=== PATIENT | male | born 1980 | race Caucasian/White ===

== ENCOUNTER 2016-07-28 18:40 | Emergency (ER) | payer OTHER ==
[2016-07-28 18:51] VITALS: BP 143/93
--- NOTE | 2016-07-28 19:08 | EDM.PDOC ---
ED HISTORY OF PRESENT ILLNESS - General Chief Complaint: Respiratory Problem Stated Complaint: COUGH Time Seen by Provider: 07/28/16 18:56 Source of Information: Reports: Patient History Limitations: Reports: No limitations - History of Present Illness INITIAL COMMENTS - FREE TEXT/NARRATIVE: The patient says he woke up last night with a sore throat. He has then developed a cough. He will cough so hard that he will vomit at times. He does not feel good and he feels lightheaded. He does not feel like he has a fever but he has been outside in the cold all day long. He did not get his flu shot. He has no chest pain and no shortness of breath. He has no nausea or abdominal pain. He just vomited after coughing. The patient does smoke and he has had albuterol for reactive airways before. Timing/Duration: Reports: Day(s): (last night) Severity: moderate Improves with: Reports: None Worsens with: Reports: None Associated Symptoms (General): Reports: cough. Denies: chest pain, fever/chills , shortness of breath - Related Data Allergies/ADRs: Allergies Allergy/AdvReac Type Severity Reaction Status Date / Time No Known Allergies Allergy Verified 07/28/16 18:51 Home Meds: Home Meds Dextroamphetamine/Amphetamine [Adderall 10 mg Tablet] 10 mg PO 1500 07/27/15 [ History] Dextroamphetamine/Amphetamine [Adderall] 30 mg PO DAILY 07/27/15 [History] Hydrocodone/Acetaminophen [Hydrocodon-Acetaminophen 5-325] 1 mg PO BID PRN 07/26 [History] traZODone 100 mg PO BEDTIME 07/27/15 [History] Famotidine [Pepcid] 20 mg PO DAILY #30 tablet 06/19/16 [Rx] Ondansetron HCl [Zofran] 8 mg PO Q4H PRN #6 tablet 06/19/16 [Rx] Albuterol [IJD: Ventolin HFA] 2 puff INH Q6HR PRN #18 gm 07/28/16 [Rx] Azithromycin [IJD: Azithromycin] 250 mg PO DAILY #6 tab 07/28/16 [Rx] Codeine/Promethazine [Phenergan with Codeine] 5 - 10 ml PO Q6HR PRN #240 ml [Rx] Past Medical History Genitourinary History: Reports: Pyelonephritis, Renal calculus Musculoskeletal History: Reports: Fracture Neurological History: Reports: Headaches, chronic Other Neuro History: states had "tension headaches when I was in the ." Psychiatric History: Reports: PTSD - Infectious Disease History Infectious Disease History: Reports: Chicken pox - Past Surgical History HEENT Surgical History: Reports: Oral surgery Musculoskeletal Surgical History: Reports: Arthroscopic knee Social & Family History - Tobacco Use Smoking Status *Q: Current Every Day Smoker Years of Tobacco use: 16 Packs/Tins Daily: 1 Second Hand Smoke Exposure: No - Caffeine Use Caffeine Use: Reports: None - Recreational Drug Use Recreational Drug Use: No - Living Situation & Occupation Living situation: Reports: single Occupation: employed ED ROS GENERAL - Review of Systems Review Of Systems: See Below Constitutional: Reports: malaise, weakness, fatigue HEENT: Reports: Other (Congestion and runny nose) Respiratory: Reports: Cough. Denies: Shortness of Breath Cardiovascular: Reports: No symptoms Endocrine: Reports: no symptoms GI/Abdominal: Reports: No symptoms : Reports: no symptoms Musculoskeletal: Reports: no symptoms Skin: Reports: no symptoms ED EXAM, GENERAL - Physical Exam Exam: See Below Exam Limited By: No limitations General Appearance: alert, no apparent distress Ears: normal external exam, normal canal, normal TMs Nose: normal inspection Throat/Mouth: Normal inspection Head: atraumatic, normocephalic Neck: normal inspection Respiratory/Chest: no respiratory distress, lungs clear, normal breath sounds Cardiovascular: regular rate, rhythm, no edema, no murmur GI/Abdominal: soft, non tender, no organomegaly, no mass Extremities: normal inspection Neurological: alert, oriented, no motor/sensory deficits Course - Vital Signs Last Recorded V/S: Last Vital Signs Temp 98.8 F 07/28/16 18:47 Pulse 109 H 07/28/16 18:47 Resp 18 07/28/16 18:47 BP 143/93 H 07/28/16 18:47 Pulse Ox 99 07/28/16 18:47 - Orders/Labs/Meds Orders: Active Orders 24 hr Category Date Time Status CXR [Chest 2V] [CR] Stat Exams 07/28/16 19:02 Ordered - Re-Assessments/Exams Free Text/Narrative Re-Assessment/Exam: 07/28/16 19:07 I have ordered a CXR and influenza screen. 07/28/16 19:45 His influenza is negative and his CXR looks good. I will treat him for bronchitis with zithromax, phenergan with codeine and an inhaler. Departure - Departure Time of Disposition: 19:50 Disposition: Home, Self-Care 01 Condition: good Clinical Impression: Bronchitis Prescriptions: Albuterol [IJD: Ventolin HFA] 2 puff INH Q6HR PRN #18 gm PRN Reason: Shortness Of Breath Codeine/Promethazine [Phenergan with Codeine] 5 - 10 ml PO Q6HR PRN #240 ml PRN Reason: Cough Azithromycin [IJD: Azithromycin] 250 mg PO DAILY #6 tab Referrals: Shell See PA [Physician Tree Expert] - 1 Week Forms: ED Department Discharge Additional Instructions: Get plenty of rest and drink plenty of fluids such as water. Take the zithromax daily for 5 days. Take the phenergan with codeine for cough. You may need 10mLs to control the cough. Please return if you are worse. - My Orders Last 24 Hours: My Active Orders 07/28/16 19:02 CXR [Chest 2V] [CR] Stat - Assessment/Plan Last 24 Hours: My Active Orders 07/28/16 19:02 CXR [Chest 2V] [CR] Stat
--- NOTE | 2016-07-29 09:59 | CR ---
Chest: Two views of the chest were obtained. Comparison: Previous chest x-ray of 01/14/16. Heart size and mediastinum are normal. Lungs are clear. Bony structures are unremarkable for the patient's age. Impression: 1. Nothing acute is identified on two-view chest x-ray. Diagnostic code #1
== END 2016-07-28 20:05 | disposition home or self-care (01) ==
LOC: JD.ED 18:40
DX: J40 Bronchitis, not specified as acute or chronic (principal); Z79.899 Other long term (current) drug therapy; F17.200 Nicotine dependence, unspecified, uncomplicated
CPT/HCPCS: 71020; 71020-26; 87804; 99283; 99284

== ENCOUNTER 2017-03-03 03:27 | Emergency (ER) | payer OTHER ==
[2017-03-03 03:37] VITALS: BP 139/83
--- NOTE | 2017-03-03 03:46 | EDM.PDOC ---
ED HPI GENERAL MEDICAL PROBLEM - General Chief Complaint: General Stated Complaint: CHILS/FEVER/THROWING UP Time Seen by Provider: 03/03/17 03:36 Source of Information: Reports: Patient History Limitations: Reports: No Limitations - History of Present Illness INITIAL COMMENTS - FREE TEXT/NARRATIVE: 36-year-old male presents to the ED with acute onset of nausea vomiting 5 over the last 7 hours. Initial emesis contained eaten food. Subsequently is been bilious without blood. He then developed severe chills/rigors where he can no longer keep warm tonight. He has been coughing for the better part of a week with greenish sputum production. No hemoptysis. He is a smoker. Usually takes tramadol and Adderall but has been off both these medications for months since the [employer] did not send his medication as prescribed. Denies any genitourinary complaints. No skin problems. No previous abdominal surgery. Stools have been on the looser side but not diarrhea. Onset: Today, Other (Has been coughing with greenish sputum production for the better part of a week.) Onset Date: 03/03/17 (Sudden onset of fever chills with nausea and vomiting.) Duration: Hour(s): (Has vomited 5 times over the last 7 hours.) Location: Reports: Chest, Abdomen Quality: Reports: Other Severity: Moderate (Diffuse myalgia.) Improves with: Reports: None Worsens with: Reports: None Context: Reports: Other. Denies: Activity, Exercise, Lifting, Sick Contact, Trauma Associated Symptoms: Reports: Chest Pain, Cough (Has been ill with upper respiratory tree tract infection for the last week.), cough w sputum (Greenish sputum), Fever/Chills, Headaches (ESPECIALLY tonight.), Loss of Appetite, Malaise, Nausea/Vomiting, Shortness of Breath, Weakness. 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: Other (see below) (Nothing will stay down.) - Related Data Allergies Allergy/AdvReac Type Severity Reaction Status Date / Time No Known Allergies Allergy Verified 03/03/17 03:37 Home Meds: Home Meds Dextroamphetamine/Amphetamine [Adderall 10 mg Tablet] 30 mg PO 1500 07/27/15 [ History] Dextroamphetamine/Amphetamine [Adderall] 30 mg PO DAILY 07/27/15 [History] traZODone 100 mg PO BEDTIME 07/27/15 [History] Albuterol [IJD: Ventolin HFA] 2 puff INH Q6HR PRN #18 gm 07/28/16 [Rx] Budesonide/Formoterol Fumarate [Symbicort 160-4.5 Mcg Inhaler] 1 - 2 puff INH DAILY 03/03/17 [History] Hydrocodone/Chlorphen P-Stirex [Tussionex Pennkinetic Susp] 5 ml PO Q12H PRN # 60 ml 03/03/17 [Rx] Levofloxacin [Levaquin] 500 mg PO Q24H #9 tablet 03/03/17 [Rx] Ondansetron [Zofran ODT] 4 mg PO Q6H #5 tab.dis 03/03/17 [Rx] traMADol [Ultram] 50 mg PO Q6H PRN 03/03/17 [History] Past Medical History Genitourinary History: Reports: Pyelonephritis, Renal Calculus Musculoskeletal History: Reports: Fracture Neurological History: Reports: Headaches, Chronic Other Neuro History: states had "tension headaches when I was in the ." Psychiatric History: Reports: PTSD - Infectious Disease History Infectious Disease History: Reports: Chicken Pox - Past Surgical History HEENT Surgical History: Reports: Oral Surgery Musculoskeletal Surgical History: Reports: Arthroscopic Knee Social & Family History - Tobacco Use Smoking Status *Q: Current Every Day Smoker Years of Tobacco use: 16 Packs/Tins Daily: 1 Second Hand Smoke Exposure: No - Caffeine Use Caffeine Use: Reports: None - Recreational Drug Use Recreational Drug Use: No - Living Situation & Occupation Living situation: Reports: Single Occupation: Employed ED ROS GENERAL - Review of Systems Review Of Systems: See Below Constitutional: Reports: Fever, Chills, Malaise, Weakness, Fatigue, Decreased Appetite (For the last week.), Weight Loss HEENT: Denies: Dental Pain, Ear Pain, Eye Discharge, Eye Pain, Sinus Problem Respiratory: Reports: Shortness of Breath, Cough, Sputum. Denies: Wheezing, Pleuritic Chest Pain, Hemoptysis (Greenish in color) Cardiovascular: Reports: Chest Pain (Central chest pain with paroxysmal coughing.), Lightheadedness. Denies: Blood Pressure Problem, Claudication, Dyspnea on Exertion, Edema (At times), Orthopnea, Palpitations Endocrine: Reports: Fatigue GI/Abdominal: Reports: Abdominal Pain (Upper abdominal pain from vomiting.), Diarrhea (Loose stools but not watery.), Decreased Appetite. Denies: Flatus, Hematemesis : Reports: No Symptoms ( 1.) Musculoskeletal: Reports: Back Pain Skin: Reports: No Symptoms Neurological: Reports: Dizziness, Headache, Difficulty Walking, Weakness (Due to weakness). Denies: Numbness, Paresthesia, Pre-Existing Deficit, Seizure, Syncope, Tingling, Tremors, Trouble Speaking, Change in Speech, Gait Disturbance Psychiatric: Reports: No Symptoms Hematologic/Lymphatic: Reports: No Symptoms Immunologic: Reports: No Symptoms ED EXAM, GENERAL - Physical Exam Exam: See Below Exam Limited By: No Limitations General Appearance: Alert, Mild Distress (Distressed heavily and appears ill.) Eye Exam: Bilateral Eye: Normal Inspection (No jaundice.) Ears: Other (Has a right serous otitis media early otitis media. Left TM is normal.) Ear Exam: Right Ear: Erythema, Swelling, TM Red, TM Bulging Nose: Normal Inspection Throat/Mouth: Normal Inspection, Normal Oropharynx, Other Head: Atraumatic (Posterior oropharynx is diffusely erythematous from coughing but no exudate or active infection noted.), Normocephalic Neck: Normal Inspection, Supple, Full Range of Motion. No: Lymphadenopathy (L) , Lymphadenopathy (R) Respiratory/Chest: No Respiratory Distress, Lungs Clear, Normal Breath Sounds, No Accessory Muscle Use Cardiovascular: Normal Peripheral Pulses, Regular Rate, Rhythm, No Edema, No Gallop, No Murmur, No Rub Peripheral Pulses: 2+: Posterior Tibial (L), Posterior Tibial (R), Dorsalis Pedis (L), Dorsalis Pedis (R) GI/Abdominal: Normal Bowel Sounds, Soft, Non-Tender, No Organomegaly, No Distention, No Abnormal Bruit, No Mass, Pelvis Stable, Other (No previous surgical scars.) Back Exam: Normal Inspection, Full Range of Motion. No: CVA Tenderness (L), CVA Tenderness (R) Extremities: Normal Inspection, Normal Range of Motion, Non-Tender, No Pedal Edema, Normal Capillary Refill Neurological: Alert, Oriented, CN II-XII Intact, Normal Cognition, Normal Gait, Normal Reflexes Psychiatric: Normal Affect, Normal Mood Skin Exam: Warm, Dry, Intact, Normal Color, No Rash Course - Vital Signs Last Recorded V/S: Last Vital Signs Temp 36.8 C 03/03/17 04:00 Pulse 82 03/03/17 03:34 Resp 16 03/03/17 03:34 BP 139/83 03/03/17 03:34 Pulse Ox 95 03/03/17 03:34 - Orders/Labs/Meds Orders: Active Orders 24 hr Category Date Time Status Chest 1V Frontal [CR] Stat Exams 03/03/17 03:48 Taken CULTURE BLOOD [BC] Stat Lab 03/03/17 04:10 Received CULTURE BLOOD [BC] Stat Lab 03/03/17 04:17 Received Dextrose 5%-0.9% NaCl [Dextrose 5%-Normal Saline] 1,000 Med 03/03/17 04:00 Active ml IV ASDIRECTED Ketorolac [Toradol] Med 03/03/17 04:00 Active 30 mg IVPUSH ONETIME Blood Culture x2 Reflex Set [OM.PC] Stat Oth 03/03/17 03:49 Ordered Medication Orders Dextrose/Sodium Chloride (Dextrose 5%-Normal Saline) 1,000 mls @ 500 mls/hr IV ASDIRECTED KELL Last Admin: 03/03/17 03:57 Dose: 500 mls/hr Ketorolac Tromethamine (Toradol) 30 mg IVPUSH ONETIME KELL Last Admin: 03/03/17 03:58 Dose: 30 mg Labs: Laboratory Tests 03/03/17 03/03/17 03/03/17 Range/Units 04:10 04:10 04:22 WBC 11.36 H (4.23-9.07) K/mm3 RBC 5.29 (4.63-6.08) M/mm3 Hgb 15.7 (13.7-17.5) gm/L Hct 45.8 (40.1-51.0) % MCV 86.6 (79.0-92.2) fl MCH 29.7 (25.7-32.2) pg MCHC 34.3 (32.2-35.5) g/dl RDW Std Deviation 40.3 (35.1-43.9) fL Plt Count 184 (163-337) K/mm3 MPV 10.9 (9.4-12.3) fl Neutrophils % (Manual) 82 H (40-60) % Band Neutrophils % 0 (0-10) % Lymphocytes % (Manual) 9 L (20-40) % Atypical Lymphs % 4 % Monocytes % (Manual) 3 (2-10) % Eosinophils % (Manual) 2 (0.8-7.0) % Basophils % (Manual) 0 L (0.2-1.2) Platelet Estimate Adequate Plt Morphology Comment Normal RBC Morph Comment Normal Sodium 139 (136-145) mEq/L Potassium 3.6 (3.5-5.1) mEq/L Chloride 103 (98-107) mEq/L Carbon Dioxide 25 (21-32) mEq/L Anion Gap 14.6 (5-15) BUN 13 (7-18) mg/dL Creatinine 1.1 (0.7-1.3) mg/dL Est Cr Clr Drug Dosing 88.03 mL/min Estimated GFR (MDRD) > 60 (>60) mL/min BUN/Creatinine Ratio 11.8 L (14-18) Glucose 150 H (74-106) mg/dL Calcium 9.1 (8.5-10.1) mg/dL Total Bilirubin 0.5 (0.2-1.0) mg/dL AST 18 (15-37) U/L ALT 22 (16-63) U/L Alkaline Phosphatase 120 H (46-116) U/L C-Reactive Protein 3.0 H* (<1.0) mg/dL Total Protein 7.4 (6.4-8.2) g/dl Albumin 3.7 (3.4-5.0) g/dl Globulin 3.7 gm/dL Albumin/Globulin Ratio 1.0 (1-2) Urine Color Yellow (Yellow) Urine Appearance Clear (Clear) Urine pH 6.0 (5.0-8.0) Ur Specific [place] > or = 1.030 (1.005-1.030) Urine Protein 1+ H (Negative) Urine Glucose (UA) Negative (Negative) Urine Ketones 1+ H (Negative) Urine Occult Blood Negative (Negative) Urine Nitrite Negative (Negative) Urine Bilirubin Negative (Negative) Urine Urobilinogen 0.2 (0.2-1.0) Ur Leukocyte Esterase Negative (Negative) Urine RBC 0-5 (0-5) /hpf Urine WBC 0-5 (0-5) /hpf Urine WBC Clumps Rare (NOT SEEN) /hpf Ur Epithelial Cells Not seen (0-5) /hpf Urine Bacteria Rare (FEW) /hpf Urine Mucus Moderate H (FEW) /hpf Meds: Medications Generic Name Dose Route Start Last Admin Trade Name Freq PRN Reason Stop Dose Admin Dextrose/Sodium Chloride 1,000 mls @ 500 mls/hr 03/03/17 04:00 03/03/17 03:57 Dextrose 5%-Normal Saline IV 500 mls/hr ASDIRECTED KELL Administration Ketorolac Tromethamine 30 mg 03/03/17 04:00 03/03/17 03:58 Toradol IVPUSH 30 mg ONETIME KELL Administration Discontinued Medications Generic Name Dose Route Start Last Admin Trade Name Freq PRN Reason Stop Dose Admin Acetaminophen 975 mg 03/03/17 03:50 03/03/17 04:00 Tylenol PO 03/03/17 03:51 975 mg NOW ONE Administration Hydromorphone HCl 0.5 mg 03/03/17 04:50 03/03/17 04:55 Dilaudid IVPUSH 03/03/17 04:51 0.5 mg ONETIME ONE Administration Levofloxacin/Dextrose 500 mg/ 100 mls @ 100 mls/hr 03/03/17 05:22 03/03/17 05 :31 Premix IV 03/03/17 06:21 100 mls/hr ONETIME ONE Administration Metoclopramide HCl 7.5 mg 03/03/17 03:50 03/03/17 03:59 Reglan IVPUSH 03/03/17 03:51 7.5 mg ONETIME ONE Administration - Radiology Interpretation Free Text/Narrative:: 36-year-old male presents the ED with reported acute onset of fever chills with associated nausea vomiting over the last 6 date hours. He's been coughing paroxysmal for the better part of a week with greenish sputum production. No diarrhea. He is afebrile on examination. He feels "quite cool to touch actually. Tongue is mildly dry and coated. Lungs sound clear to auscultation percussion benign abdominal examination integument normal. Plan septic workup will be carried out although he is not showing any signs of true septicemia. Chest x-ray blood cultures 2. IV will be D5 normal saline at 500 mils per hour. Given Reglan 7.5 mg IV to arrest vomiting. Toradol 30 mg IV for headache and myalgia relief. Tylenol 975 mg by mouth in about 20 minutes once the Reglan to start to work. - Re-Assessments/Exams Free Text/Narrative Re-Assessment/Exam: 03/03/17 04:40: Chest x-ray done portably reveals no infiltrates within the lung franco. Does suggest diffuse vascular congestion and mild cardiomegaly but I believe it's magnified due to portable technique. 03/03/17 04:50 patient continues to have a paroxysmal nonproductive cough. This is producing dry heave like illness. I do not believe he'll tolerate Phenergan with codeine. We'll try Dilaudid 0.5 mg IV for its anti-to tussive effect. 03/03/17 05:17 Labs are back. White count is elevated at 11.36. Differentials 82% neutrophils no bands hemoglobin is normal 15.7 with hematocrit of 45.8. Sodium is 139 potassium 3.6 chloride 103 bicarbonate 25. Anion gap is normal at 14.6 BUN is 13 creatinine is 1.1 glucose is 150. Total bilirubin 0.5 AST of 18 ALT of 22. Alkaline phosphatase stays minimally elevated at 120. C-reactive protein is elevated at 3.0. Urinalysis is negative for infective process. 03/03/17 05:22 he continues to have a productive sounding cough. With an elevated CRP is slightly elevated white count he has bronchitis likely bacterial origin. I will therefore hang Levaquin 500 milligrams IV at this time. Departure - Departure Time of Disposition: 06:43 Disposition: Home, Self-Care 01 Condition: Fair Clinical Impression: Nausea and vomiting in adult patient, Bronchitis, Acute febrile illness Otitis media Qualifiers: Otitis media type: suppurative Chronicity: acute Laterality: right Recurrence: not specified as recurrent Spontaneous tympanic membrane rupture: without spontaneous rupture Qualified Code(s): H66.001 - Acute suppurative otitis media without spontaneous rupture of ear drum, right ear - Discharge Information Prescriptions: Hydrocodone/Chlorphen P-Stirex [Tussionex Pennkinetic Susp] 5 ml PO Q12H PRN # 60 ml PRN Reason: cough relief. Levofloxacin [Levaquin] 500 mg PO Q24H #9 tablet Ondansetron [Zofran ODT] 4 mg PO Q6H #5 tab.dis Instructions: Acute Bronchitis, [id number] Referrals: Ana Giles DO [Primary Care Provider] - Forms: ED Department Discharge, ED Return to Work/School Form Additional Instructions: Evaluation the emergency room today in regards to development of nausea and vomiting associated with fever and chills at home. History of productive cough for greater than one week. No fever identified when you arrived in the ED. Chest x-ray done portably reveals no evidence of pneumonia. Lab work over does identify a mildly elevated white blood cell count with suggestive underlying bacterial infection. Diagnosis is therefore bronchitis. You're treated in the ED with intravenous fluids to rehydrate you. Reglan was used to stop vomiting. He received Toradol 30 mg IV for fever and body ache relief . Also later given Dilaudid 0.5 mg IV as a cough suppressant. Treatment at home is clear fluids such as Gatorade and Powerade today and tomorrow to maintain hydration. Ideally 5-6 ounces per hour. Diet to be as tolerated. Suggest no dairy products or apple juice grape juice until you know for sure you're not going to develop diarrhea over the next 12 hours. Medications to be Levaquin 500 milligrams once daily starting tomorrow morning for the next 9 days to clear up bronchitis. May use Zofran 4 mg under the tongue every 4-6 hours needed for relief of nausea vomiting. Cough syrup is primarily to be used at bedtime ideally about an hour before planning to go to sleep. 5 mils every 12 hours may be used for cough relief. Suggest off work for the next 48 hours to 72 hours to recover from current illness. - My Orders Last 24 Hours: My Active Orders 03/03/17 03:48 Chest 1V Frontal [CR] Stat 03/03/17 03:49 Blood Culture x2 Reflex Set [OM.PC] Stat 03/03/17 04:00 Dextrose 5%-0.9% NaCl [Dextrose 5%-Normal Saline] 1,000 ml IV ASDIRECTED Ketorolac [Toradol] 30 mg IVPUSH ONETIME 03/03/17 04:10 CULTURE BLOOD [BC] Stat 03/03/17 04:17 CULTURE BLOOD [BC] Stat - Assessment/Plan Last 24 Hours: My Active Orders 03/03/17 03:48 Chest 1V Frontal [CR] Stat 03/03/17 03:49 Blood Culture x2 Reflex Set [OM.PC] Stat 03/03/17 04:00 Dextrose 5%-0.9% NaCl [Dextrose 5%-Normal Saline] 1,000 ml IV ASDIRECTED Ketorolac [Toradol] 30 mg IVPUSH ONETIME 03/03/17 04:10 CULTURE BLOOD [BC] Stat 03/03/17 04:17 CULTURE BLOOD [BC] Stat
[2017-03-03] MEDS ORDERED: Acetaminophen 325 MG Tab PO ONE (03:50)
[2017-03-03] MEDS ORDERED: Metoclopramide 10 MG/2 ML SDV IVPUSH ONE (03:50)
[2017-03-03] MEDS ORDERED: Ketorolac 30 MG/ML SDV IVPUSH SCH (04:00)
[2017-03-03] MEDS ORDERED: Dextrose 5%-0.9% NaCl 1,000 ML IV SCH (04:00)
[2017-03-03] MEDS ORDERED: HYDROmorphone 0.5 MG/0.5 ML Syringe IVPUSH ONE (04:50)
[2017-03-03] MEDS ORDERED: Levofloxacin/Dextrose 5%-Water 500 MG in Premix Bag 1 BAG IV ONE (05:22)
--- NOTE | 2017-03-03 07:17 | CR ---
Chest: Portable view of the chest was obtained. Comparison: Prior chest x-ray 07/28/16. Heart size and mediastinum are normal. Lungs are clear. Bony structures are grossly intact. Impression: 1. Nothing acute is identified on portable chest x-ray. Diagnostic code #1
== END 2017-03-03 06:44 | disposition home or self-care (01) ==
LOC: JD.ED 03:27
DX: H66.001 Acute suppurative otitis media without spontaneous rupture of ear drum, right ear (principal); J40 Bronchitis, not specified as acute or chronic; R11.2 Nausea with vomiting, unspecified; F17.210 Nicotine dependence, cigarettes, uncomplicated; Z79.899 Other long term (current) drug therapy
CPT/HCPCS: 36415; 71010; 80053; 81001; 85025; 86140; 87040; 96361; 96365; 96375; 99284; A9270; J1170; J1885; J1956; J2765; J7042

== ENCOUNTER 2017-04-29 14:52 | Emergency (ER) | payer OTHER ==
[2017-04-29 15:19] VITALS: BP 121/82
--- NOTE | 2017-04-29 16:38 | EDM.PDOC ---
ED HPI GENERAL MEDICAL PROBLEM - General Chief Complaint: Burn Stated Complaint: RIGHT HAND BURN-INDEX AND MIDDLE FINGERS Time Seen by Provider: 04/29/17 16:19 Source of Information: Reports: Patient History Limitations: Reports: No Limitations - History of Present Illness INITIAL COMMENTS - FREE TEXT/NARRATIVE: Patient's a 36-year-old male presents ED complaining of jefferson to the right second and third finger. 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 Today developed blisters. He continues have pain to the burn sites mild to moderate intensity. Tetanus status up-to-date. Offers no additional complaints. Right 2-Index finger Pain Score (Numeric/FACES): 9 - Related Data Allergies Allergy/AdvReac Type Severity Reaction Status Date / Time No Known Allergies Allergy Verified 03/03/17 03:37 Home Meds: Home Meds Dextroamphetamine/Amphetamine [Adderall 10 mg Tablet] 30 mg PO 1500 07/27/15 [ History] Dextroamphetamine/Amphetamine [Adderall] 30 mg PO DAILY 07/27/15 [History] traZODone 100 mg PO BEDTIME 07/27/15 [History] Albuterol [IJD: Ventolin HFA] 2 puff INH Q6HR PRN #18 gm 07/28/16 [Rx] Budesonide/Formoterol Fumarate [Symbicort 160-4.5 Mcg Inhaler] 1 - 2 puff INH DAILY 03/03/17 [History] Ondansetron [Zofran ODT] 4 mg PO Q6H #5 tab.dis 03/03/17 [Rx] traMADol [Ultram] 50 mg PO Q6H PRN 03/03/17 [History] Past Medical History Genitourinary History: Reports: Pyelonephritis, Renal Calculus Musculoskeletal History: Reports: Fracture Neurological History: Reports: Headaches, Chronic Other Neuro History: states had "tension headaches when I was in the ." Psychiatric History: Reports: PTSD - Infectious Disease History Infectious Disease History: Reports: Chicken Pox - Past Surgical History HEENT Surgical History: Reports: Oral Surgery Musculoskeletal Surgical History: Reports: Arthroscopic Knee Social & Family History - Tobacco Use Smoking Status *Q: Current Every Day Smoker Years of Tobacco use: 28 Packs/Tins Daily: 1 Second Hand Smoke Exposure: No - Caffeine Use Caffeine Use: Reports: Coffee, Soda, Tea - Recreational Drug Use Recreational Drug Use: No - Living Situation & Occupation Living situation: Reports: Single Occupation: Employed ED ROS GENERAL - Review of Systems Review Of Systems: ROS reveals no pertinent complaints other than HPI. ED EXAM, BURN/SMOKE INHALATION - Physical Exam Exam: See Below Exam Limited By: No Limitations General Appearance: Alert, WD/WN, No Apparent Distress Ears (Abbreviated): Hearing Grossly Normal Mouth/Throat: No Symptoms Reported Respiratory: No Respiratory Distress, No Accessory Muscle Use Cardiovascular: Normal Peripheral Pulses, Regular Rate, Rhythm Peripheral Pulses: 4+: Radial (R) Extremities: Other (small intact blisters to the distal tips palmar side of the right second and third finger. Minimal pain on examination. No sensory/motor deficits distally.) Neurological: Alert, Oriented, CN II-XII Intact, Normal Cognition, No Motor/ Sensory Deficits Psychiatric: Normal Affect, Normal Mood Skin Exam: Warm, Dry, Intact Course - Vital Signs Last Recorded V/S: Last Vital Signs Temp 98.4 F 04/29/17 15:17 Pulse 86 04/29/17 15:17 Resp 20 04/29/17 15:17 BP 121/82 04/29/17 15:17 Pulse Ox 96 04/29/17 15:17 - Re-Assessments/Exams Free Text/Narrative Re-Assessment/Exam: Two small partial-thickness jefferson to the tips of the right second and third fingers palmar side. Blisters intact. Minimal pain present on palpation. Burn occurred 24 hours ago thus no further follow-up in the ER as required. He will see his PCP this coming week for reevaluation. Bacitracin and dressing applied to the fingers. Will discharge home with instructions as documented. Departure - Departure Time of Disposition: 16:34 Disposition: Home, Self-Care 01 Condition: Good Clinical Impression: Jefferson of multiple specified sites - Discharge Information Instructions: Burn Care, [id number] Referrals: Ana Giles DO [Primary Care Provider] - Forms: ED Department Discharge, ED Return to Work/School Form Additional Instructions: cleanse sites twice daily with soap and water, pat dry, reapply triple antibiotic ointment, and dressing. No soaking the wound. keep area clean and dry.Follow-up with PCP this coming Monday or Wednesday for reevaluation. Take Tylenol and ibuprofen as needed for discomfort. Return to the ED as needed for any new or worsening symptoms.
== END 2017-04-29 16:43 | disposition home or self-care (01) ==
LOC: JD.ED 14:52
DX: T23.231A Burn of second degree of multiple right fingers (nail), not including thumb, initial encounter (principal); F17.210 Nicotine dependence, cigarettes, uncomplicated; Z79.899 Other long term (current) drug therapy; X19.XXXA Contact with other heat and hot substances, initial encounter
CPT/HCPCS: 16020; 99282; 99283-25

== ENCOUNTER 2017-07-06 21:05 | Emergency (ER) | payer OTHER ==
[2017-07-06 21:12] VITALS: BP 146/99
--- NOTE | 2017-07-06 22:35 | EDM.PDOC ---
ED HPI GENERAL MEDICAL PROBLEM - General Chief Complaint: Respiratory Problem Stated Complaint: COUGH,BODY ACHES,WEAKNESS Time Seen by Provider: 07/06/17 22:00 Source of Information: Reports: Patient History Limitations: Reports: No Limitations - History of Present Illness INITIAL COMMENTS - FREE TEXT/NARRATIVE: 36-year-old male presents for evaluation and treatment of cough, headaches, body aches, nausea and vomiting. Patient reports he has been ill with Monday and cough and congestion. He states that his symptoms significantly worsened today. He states he feels like he was "hit by a truck ". He is reporting headaches, weakness, cough, body aches, nausea, vomiting and fatigue. Patient did have a flu vaccine this season. 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: Other (see below) Other Treatments FINANCIAL ADVISOR TRAINEE: mucinex; sinus cold Generalized Pain Score (Numeric/FACES): 6 - Related Data Allergies Allergy/AdvReac Type Severity Reaction Status Date / Time No Known Allergies Allergy Verified 07/08/17 13:02 Home Meds: Home Meds Dextroamphetamine/Amphetamine [Adderall] 30 mg PO DAILY 07/27/15 [History] traZODone 100 mg PO BEDTIME PRN 07/27/15 [History] Albuterol [IJD: Ventolin HFA] 2 puff INH Q6HR PRN #18 gm 07/28/16 [Rx] Budesonide/Formoterol Fumarate [Symbicort 160-4.5 Mcg Inhaler] 1 - 2 puff INH DAILY 03/03/17 [History] traMADol [Ultram] 50 mg PO Q6H PRN 03/03/17 [History] Oseltamivir [Tamiflu] 75 mg PO BID #10 cap 07/06/17 [Rx] Past Medical History Genitourinary History: Reports: Pyelonephritis, Renal Calculus Musculoskeletal History: Reports: Fracture Neurological History: Reports: Headaches, Chronic Other Neuro History: states had "tension headaches when I was in the ." Psychiatric History: Reports: PTSD - Infectious Disease History Infectious Disease History: Reports: Chicken Pox - Past Surgical History HEENT Surgical History: Reports: Oral Surgery Musculoskeletal Surgical History: Reports: Arthroscopic Knee Social & Family History - Tobacco Use Smoking Status *Q: Current Every Day Smoker Years of Tobacco use: 18 Packs/Tins Daily: 0.5 Second Hand Smoke Exposure: No - Caffeine Use Caffeine Use: Reports: Coffee, Energy Drinks - Recreational Drug Use Recreational Drug Use: No - Living Situation & Occupation Living situation: Reports: Single Occupation: Employed ED ROS GENERAL - Review of Systems Review Of Systems: See Below Constitutional: Reports: Fever, Chills, Malaise, Weakness, Fatigue HEENT: Reports: Throat Pain. Denies: Ear Pain Respiratory: Reports: Cough GI/Abdominal: Reports: Nausea, Vomiting. Denies: Abdominal Pain Neurological: Reports: Headache ED EXAM, GENERAL - Physical Exam Exam: See Below Exam Limited By: No Limitations General Appearance: Alert, WD/WN, Mild Distress, Thin Ears: Normal External Exam, Normal Canal, Hearing Grossly Normal, Normal TMs Nose: Normal Inspection Throat/Mouth: Normal Inspection, Normal Lips, Normal Oropharynx, Normal Voice, No Airway Compromise Neck: Normal Inspection. No: Lymphadenopathy (L), Lymphadenopathy (R) Respiratory/Chest: No Respiratory Distress, Lungs Clear, Normal Breath Sounds Cardiovascular: Normal Peripheral Pulses, No Murmur, Tachycardia Neurological: Alert, Oriented, Normal Cognition Psychiatric: Normal Affect, Normal Mood Skin Exam: Warm, Dry, Normal Color Course - Vital Signs Last Recorded V/S: Last Vital Signs Temp 37.7 C 07/06/17 21:11 Pulse 109 H 07/06/17 21:11 Resp 20 07/06/17 21:11 BP 146/99 H 07/06/17 21:11 Pulse Ox 96 07/06/17 21:11 - Radiology Interpretation Free Text/Narrative:: Chest x-ray shows no acute intrathoracic process. - Re-Assessments/Exams Free Text/Narrative Re-Assessment/Exam: 07/06/17 23:05 Influenza returned negative. I reviewed the labs and imaging with the patient. I do have a high clinical suspicion for influenza. He is tachycardiac, febrile and has classic influenza symptoms. I feel symptoms like his started today and therefore is in window for tamiflu. I offered him Tamiflu. Discussed risk and benefits he would like to proceed with Tamiflu. Discharge instructions as documented. Departure - Departure Time of Disposition: 23:06 Disposition: Home, Self-Care 01 Condition: Fair Clinical Impression: Influenza - Discharge Information Prescriptions: Oseltamivir [Tamiflu] 75 mg PO BID #10 cap Instructions: Influenza, Adult, [id number] Referrals: Ana Giles DO [Primary Care Provider] - Forms: ED Department Discharge, ED Return to Work/School Form Additional Instructions: tamiflu bid x 5 days no work x 1 week tylenol or motrin as needed for headaches, fevers rest drink plenty of fluids please return if symptoms change or worsen.
--- NOTE | 2017-07-07 07:35 | CR ---
Chest: Two views of the chest were obtained. Comparison: Prior chest x-ray of 03/03/17. Heart size and mediastinum are normal. Lungs are clear. Bony structures are unremarkable. Impression: 1. Nothing acute is identified on two-view chest x-ray. Diagnostic code #1
== END 2017-07-06 23:24 | disposition home or self-care (01) ==
LOC: JD.ED 21:05
DX: J11.1 Influenza due to unidentified influenza virus with other respiratory manifestations (principal); F17.210 Nicotine dependence, cigarettes, uncomplicated; Z79.899 Other long term (current) drug therapy
CPT/HCPCS: 71046; 71046-26; 87804; 99283

== ENCOUNTER 2017-07-08 12:52 | Emergency (ER) | payer OTHER ==
[2017-07-08 13:09] VITALS: BP 135/87
[2017-07-08] MEDS ORDERED: Ketorolac 30 MG/ML SDV IVPUSH ONE (13:49)
[2017-07-08] MEDS ORDERED: Sodium Chloride 0.9% 10 ML Syringe FLUSH PRN (13:49)
[2017-07-08] MEDS ORDERED: Sodium Chloride 0.9% 1,000 ML IV ONE (13:49)
[2017-07-08] MEDS ORDERED: Ondansetron 4 MG/2 ML SDV IVPUSH ONE (13:49)
--- NOTE | 2017-07-08 13:56 | EDM.PDOC ---
ED HPI GENERAL MEDICAL PROBLEM - General Chief Complaint: Fever Stated Complaint: BODY ACHES/COUGH/WEAKNESS Time Seen by Provider: 07/08/17 13:28 Source of Information: Reports: Patient History Limitations: Reports: No Limitations - History of Present Illness INITIAL COMMENTS - FREE TEXT/NARRATIVE: 36-year-old male presents for evaluation and treatment of headaches and body aches. Patient was seen by myself on . His influenza returned negative. He had a chest x-ray done which did not show any pneumonia. He was discharged home with Tamiflu as I had a high clinical suspicion for influenza. States he is not able to afford the Tamiflu and therefore has not started it. Reports his symptoms are worsening. He presented to the ER today as he states that he had a temperature of 102.1 at home. He has not taken anything today for his fever or symptoms such as Tylenol or Motrin. He has been using some severe cold and flu [id number] medication at night. Patient feels that he is dehydrated. He is currently complaining of fevers, chills, fatigue, malaise, cough, sore throat and nausea. He is having loose stools but no diarrhea. No vomiting. Symptoms started Monday but significantly worsened . No flu vaccine this season. Generalized Pain Score (Numeric/FACES): 5 - Related Data Allergies Allergy/AdvReac Type Severity Reaction Status Date / Time No Known Allergies Allergy Verified 07/08/17 13:02 Home Meds: Home Meds Dextroamphetamine/Amphetamine [Adderall] 30 mg PO DAILY 07/27/15 [History] traZODone 100 mg PO BEDTIME PRN 07/27/15 [History] Albuterol [IJD: Ventolin HFA] 2 puff INH Q6HR PRN #18 gm 07/28/16 [Rx] Budesonide/Formoterol Fumarate [Symbicort 160-4.5 Mcg Inhaler] 1 - 2 puff INH DAILY 03/03/17 [History] traMADol [Ultram] 50 mg PO Q6H PRN 03/03/17 [History] Oseltamivir [Tamiflu] 75 mg PO BID #10 cap 07/06/17 [Rx] Past Medical History Genitourinary History: Reports: Pyelonephritis, Renal Calculus Musculoskeletal History: Reports: Fracture Neurological History: Reports: Headaches, Chronic Other Neuro History: states had "tension headaches when I was in the ." Psychiatric History: Reports: PTSD - Infectious Disease History Infectious Disease History: Reports: Chicken Pox - Past Surgical History HEENT Surgical History: Reports: Oral Surgery Musculoskeletal Surgical History: Reports: Arthroscopic Knee Social & Family History - Family History Family Medical History: Noncontributory - Tobacco Use Smoking Status *Q: Current Every Day Smoker Years of Tobacco use: 20 Packs/Tins Daily: 1 Second Hand Smoke Exposure: No - Caffeine Use Caffeine Use: Reports: Coffee, Energy Drinks - Recreational Drug Use Recreational Drug Use: No - Living Situation & Occupation Living situation: Reports: Single Occupation: Employed ED ROS GENERAL - Review of Systems Review Of Systems: See Below Constitutional: Reports: Fever, Chills, Malaise, Weakness, Fatigue HEENT: Reports: Throat Pain. Denies: Ear Pain Respiratory: Reports: Cough GI/Abdominal: Denies: Abdominal Pain, Diarrhea, Vomiting Neurological: Reports: Headache ED EXAM, GENERAL - Physical Exam Exam: See Below Exam Limited By: No Limitations General Appearance: Alert, WD/WN, Mild Distress, Thin Eye Exam: Bilateral Eye: Normal Inspection Ears: Normal External Exam, Normal Canal, Hearing Grossly Normal, Normal TMs Nose: Normal Inspection Throat/Mouth: Normal Inspection, Normal Lips, Normal Voice Neck: Normal Inspection Respiratory/Chest: No Respiratory Distress, Lungs Clear, Normal Breath Sounds Cardiovascular: Normal Peripheral Pulses, Regular Rate, Rhythm, No Murmur GI/Abdominal: Soft, Non-Tender Neurological: Alert, Oriented, Normal Cognition Psychiatric: Normal Affect, Normal Mood Skin Exam: Normal Color, Diaphoretic, Increased Warmth Course - Vital Signs Last Recorded V/S: Last Vital Signs Temp 37.1 C 07/08/17 13:07 Pulse 106 H 07/08/17 13:07 Resp 16 07/08/17 13:07 BP 135/87 07/08/17 13:07 Pulse Ox 96 07/08/17 13:07 - Orders/Labs/Meds Orders: Active Orders 24 hr Category Date Time Status Peripheral IV Care [RC] . DIRECTED Care 07/08/17 13:49 Active CULTURE STREP A CONFIRMATION [RM] Stat Lab 07/08/17 14:09 Results STREP SCRN A RAPID W CULT CONF [RM] Stat Lab 07/08/17 14:09 Results Peripheral IV Insertion Adult [OM.PC] Routine Oth 07/08/17 13:49 Ordered Meds: Medications Discontinued Medications Generic Name Dose Route Start Last Admin Trade Name Fredomenico PRN Reason Stop Dose Admin Sodium Chloride 1,000 mls @ 999 mls/hr 07/08/17 13:49 07/08/17 14:02 Normal Saline IV 07/08/17 14:49 999 mls/hr ONETIME ONE Administration Ketorolac Tromethamine 30 mg 07/08/17 13:49 07/08/17 14:05 Toradol IVPUSH 07/08/17 13:50 30 mg ONETIME ONE Administration Ondansetron HCl 4 mg 07/08/17 13:49 07/08/17 14:02 Zofran IVPUSH 07/08/17 13:50 4 mg ONETIME ONE Administration Sodium Chloride 10 ml 07/08/17 13:49 07/08/17 14:05 Saline Flush FLUSH 10 ml ASDIRECTED PRN Administration Keep Vein Open - Re-Assessments/Exams Free Text/Narrative Re-Assessment/Exam: 07/08/17 16:12 Rapid strep returned negative. Reviewed this with the patient. He is feels improved after receiving a beta fluids and some Toradol. I do feel that this is influenza, recommended not filling the tamiflu as he is now out of window for treatment. I will discharge him home at this time. Discharge instructions as documented. Departure - Departure Time of Disposition: 16:13 Disposition: Home, Self-Care 01 Condition: Fair Clinical Impression: Influenza - Discharge Information Instructions: Influenza, Adult, [id number] Referrals: Ana Giles DO [Primary Care Provider] - Forms: ED Department Discharge Additional Instructions: Continue to drink plenty of fluids. Rest. Expect the ill for the next few days. Normally with influenza the first week is the worst however you are ill for several weeks regaining her energy. Follow-up with your primary care provider as needed. Alternate between Tylenol and Motrin for maximum headache and body relief. Please return to the ER if your symptoms change or worsen. - My Orders Last 24 Hours: My Active Orders 07/08/17 13:49 Peripheral IV Care [RC] . DIRECTED Peripheral IV Insertion Adult [OM.PC] Routine 07/08/17 14:09 CULTURE STREP A CONFIRMATION [RM] Stat STREP SCRN A RAPID W CULT CONF [RM] Stat - Assessment/Plan Last 24 Hours: My Active Orders 07/08/17 13:49 Peripheral IV Care [RC] . DIRECTED Peripheral IV Insertion Adult [OM.PC] Routine 07/08/17 14:09 CULTURE STREP A CONFIRMATION [RM] Stat STREP SCRN A RAPID W CULT CONF [RM] Stat
== END 2017-07-08 16:47 | disposition home or self-care (01) ==
LOC: JD.ED 12:52
DX: J11.1 Influenza due to unidentified influenza virus with other respiratory manifestations (principal); F17.210 Nicotine dependence, cigarettes, uncomplicated; F43.10 Post-traumatic stress disorder, unspecified; Z79.899 Other long term (current) drug therapy
CPT/HCPCS: 87081; 87430; 96361; 96374; 96375; 99283; J1885; J2405; J7040; J7050; 99282

== ENCOUNTER 2017-08-24 20:19 | Emergency (ER) | payer OTHER ==
[2017-08-24 20:33] VITALS: BP 129/85
--- NOTE | 2017-08-24 20:45 | EDM.PDOC ---
ED HPI GENERAL MEDICAL PROBLEM - General Chief Complaint: General Stated Complaint: RIGHT SIDE PAIN Time Seen by Provider: 08/24/17 20:44 Source of Information: Reports: Patient History Limitations: Reports: No Limitations - History of Present Illness INITIAL COMMENTS - FREE TEXT/NARRATIVE: Patient is a 36-year-old male presents ED complaining of right lateral chest discomfort. Patient states while moving a metal pipe at work today he had picked one of the pipes up underneath his right arm turned and felt a pop to the right lateral aspect of his chest. States since then the pain has increased worsened with palpation and or taking a deep breath. He states the pipe may have bumped him forcibly on the side. He has no other complaints. Right Chest Pain Score (Numeric/FACES): 8 - Related Data Allergies Allergy/AdvReac Type Severity Reaction Status Date / Time No Known Allergies Allergy Verified 08/24/17 20:26 Home Meds: Home Meds traZODone 100 mg PO BEDTIME PRN 07/27/15 [History] Albuterol [IJD: Ventolin HFA] 2 puff INH Q6HR PRN #18 gm 07/28/16 [Rx] Budesonide/Formoterol Fumarate [Symbicort 160-4.5 Mcg Inhaler] 1 - 2 puff INH DAILY 03/03/17 [History] Acetaminophen/HYDROcodone [[place] 325-5 MG] 1 tab PO Q6H PRN #8 tablet 08/24/17 [ Rx] Cetirizine [ZyrTEC] 10 mg PO DAILY 08/24/17 [History] Dextroamphetamine/Amphetamine [Adderall Xr 30 mg Capsule] 1 tab PO DAILY [History] Dextroamphetamine/Amphetamine [Adderall] 30 mg PO DAILY 08/24/17 [History] Nicotine [Nicotine Patch] 1 patch TD DAILY 08/24/17 [History] Past Medical History Genitourinary History: Reports: Pyelonephritis, Renal Calculus Musculoskeletal History: Reports: Fracture Neurological History: Reports: Headaches, Chronic Other Neuro History: states had "tension headaches when I was in the ." Psychiatric History: Reports: PTSD - Infectious Disease History Infectious Disease History: Reports: Chicken Pox - Past Surgical History HEENT Surgical History: Reports: Oral Surgery Musculoskeletal Surgical History: Reports: Arthroscopic Knee Social & Family History - Family History Family Medical History: Noncontributory - Tobacco Use Smoking Status *Q: Current Every Day Smoker Years of Tobacco use: 15 Packs/Tins Daily: 0.5 Second Hand Smoke Exposure: No - Caffeine Use Caffeine Use: Reports: Coffee, Energy Drinks - Recreational Drug Use Recreational Drug Use: No - Living Situation & Occupation Living situation: Reports: Single Occupation: Employed ED ROS GENERAL - Review of Systems Review Of Systems: See Below Constitutional: Reports: No Symptoms HEENT: Reports: No Symptoms Respiratory: Reports: No Symptoms Cardiovascular: Reports: Chest Pain GI/Abdominal: Reports: No Symptoms Musculoskeletal: Reports: No Symptoms Skin: Reports: No Symptoms ED EXAM, GENERAL - Physical Exam Exam: See Below Exam Limited By: No Limitations General Appearance: Alert, WD/WN, No Apparent Distress Ears: Hearing Grossly Normal Nose: Normal Inspection Throat/Mouth: Normal Voice, No Airway Compromise Neck: Normal Inspection, Supple Respiratory/Chest: No Respiratory Distress, Lungs Clear, Normal Breath Sounds, No Accessory Muscle Use, Other (pin point tenderness noted to the right lateral chest, mid axillary line approx 4th intercostal space. no swelling, bony abnormalities, ecchymossis, abrasions noted. ) Course - Vital Signs Last Recorded V/S: Last Vital Signs Temp 98.0 F 08/24/17 20:30 Pulse 76 08/24/17 20:30 Resp 16 08/24/17 20:30 BP 129/85 08/24/17 20:30 Pulse Ox 97 08/24/17 20:30 - Orders/Labs/Meds Meds: Medications Discontinued Medications Generic Name Dose Route Start Last Admin Trade Name Rockyq PRN Reason Stop Dose Admin Hydrocodone Bitart/Acetaminophen 1 tab 08/24/17 20:52 08/24/17 21:15 [place] 325-5 Mg PO 08/24/17 20:53 1 tab ONETIME ONE Administration - Re-Assessments/Exams Free Text/Narrative Re-Assessment/Exam: X-ray of the right ribs with chest ordered. 08/24/17 22:[address] Dudley with no fractures noted. Suspect cause is a contusion. Discharge instructions as documented. Departure - Departure Time of Disposition: 22:05 Disposition: Home, Self-Care 01 Condition: Good Clinical Impression: Contusion of rib on right side Qualifiers: Encounter type: initial encounter Qualified Code(s): S20.211A - Contusion of right front wall of thorax, initial encounter - Discharge Information Prescriptions: Acetaminophen/HYDROcodone [[place] 325-5 MG] 1 tab PO Q6H PRN #8 tablet PRN Reason: Pain (Severe 7-10) Instructions: Chest Contusion, Adult, Blunt Chest Trauma Referrals: Ana Giles DO [Primary Care Provider] - Forms: ED Department Discharge, ED Return to Work/School Form Additional Instructions: No obvious fractures noted on the x-ray. Suspect cause of discomfort is a bruise to the chest wall. Treatment will be Tylenol and ibuprofen in alternating fashion for discomfort. Take [place] one tab every 6 hrs as needed for severe pain. Do not take tylenol with the norco. Followup with occupational med provider for modification of job duties. Return to the ED for any new or worsening symptoms. May place ice to the affected areas 4 times daily , 30 minutes in duration, do not place ice directly on the skin.
[2017-08-24] MEDS ORDERED: Acetaminophen/HYDROcodone 325-5 MG Tab PO ONE (20:52)
--- NOTE | 2017-08-25 08:06 | CR ---
Chest and right ribs: Frontal view of the chest was obtained as well as three views of the right ribs. Comparison: Prior chest x-ray of 07/06/17. Heart size and mediastinum are normal. Lungs show no acute parenchymal change. No discrete fracture or other right sided rib abnormality is seen. Impression: 1. Nothing acute is seen on frontal chest x-ray. No discrete right-sided rib abnormality is appreciated. Diagnostic code #1
== END 2017-08-24 22:18 | disposition home or self-care (01) ==
LOC: JD.ED 20:19
DX: S20.211A Contusion of right front wall of thorax, initial encounter (principal); F17.210 Nicotine dependence, cigarettes, uncomplicated; Z79.899 Other long term (current) drug therapy; W22.8XXA Striking against or struck by other objects, initial encounter
CPT/HCPCS: 71101; 99283; A9270

== ENCOUNTER 2017-10-11 22:26 | Emergency (ER) | payer OTHER ==
[2017-10-11 22:41] VITALS: BP 130/83
--- NOTE | 2017-10-11 22:46 | EDM.PDOC ---
ED HPI GENERAL MEDICAL PROBLEM - General Chief Complaint: Respiratory Problem Stated Complaint: COUGH Time Seen by Provider: 10/11/17 22:44 Source of Information: Reports: Patient History Limitations: Reports: No Limitations - History of Present Illness INITIAL COMMENTS - FREE TEXT/NARRATIVE: 37-year-old male presents the ED with severe paroxysmal cough. States she's been coughing paroxysmal A. fib the better part of a year. Explained primarily on the thyroiditis. He has thyroid levels that are up and down and all over the map. 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 He has been treated with inhaled corticosteroids but she is not faithful with. So also had treatments of course for reflux disorder which have not made much difference in terms of cough. Tonight his cough is severe and uncontrolled 9 hours. Usually he can take Tessalon Perles and ring his cough under control. Does not feel that he has any recent upper respiratory tract infection although his left ear is hurting. He is bringing up mostly clear sputum. No noted fever or chills. Chest hurts from coughing so hard. Denies any hemoptysis. Denied he's vomited twice from coughing so hard. Onset: Other (Has had a paroxysmal intermittent cough over a year.) Duration: Chronic, Getting Worse Location: Reports: Chest (Severe paroxysmal cough. Found to have a small granuloma right lower lobe of his lung on CT scan. He is for repeat CT scan in 6 months to a year.) Quality: Reports: Other (Severe paroxysmal cough to the point of vomiting.) Severity: Severe Improves with: Reports: None Worsens with: Reports: Other Context: Denies: Activity (Lying down.), Exercise, Lifting, Sick Contact, Trauma , Other Associated Symptoms: Reports: Cough (Sputum is mostly clear paroxysmal cough that is sporadic.), cough w sputum, Malaise (From not being able to sleep due to cough), Shortness of Breath (Severe cough makes him feel short of breath at times.). 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.) Middle Chest Pain Score (Numeric/FACES): 6 - Related Data Allergies Allergy/AdvReac Type Severity Reaction Status Date / Time No Known Allergies Allergy Verified 10/11/17 22:42 Home Meds: Home Meds traZODone 100 mg PO BEDTIME PRN 07/27/15 [History] Albuterol [IJD: Ventolin HFA] 2 puff INH Q6HR PRN #18 gm 07/28/16 [Rx] Budesonide/Formoterol Fumarate [Symbicort 160-4.5 Mcg Inhaler] 1 - 2 puff INH DAILY 03/03/17 [History] Cetirizine [ZyrTEC] 10 mg PO DAILY 08/24/17 [History] Dextroamphetamine/Amphetamine [Adderall Xr 30 mg Capsule] 1 tab PO DAILY [History] Dextroamphetamine/Amphetamine [Adderall] 30 mg PO DAILY 08/24/17 [History] Azithromycin [Zithromax] 250 mg PO DAILY #6 tab 10/12/17 [Rx] Hydrocodone/Chlorphen P-Stirex [Tussionex Pennkinetic Susp] 5 ml PO Q12H PRN # 100 ml 10/12/17 [Rx] Past Medical History Genitourinary History: Reports: Pyelonephritis, Renal Calculus Musculoskeletal History: Reports: Fracture Neurological History: Reports: Headaches, Chronic Other Neuro History: states had "tension headaches when I was in the ." Psychiatric History: Reports: PTSD - Infectious Disease History Infectious Disease History: Reports: Chicken Pox - Past Surgical History HEENT Surgical History: Reports: Oral Surgery Musculoskeletal Surgical History: Reports: Arthroscopic Knee Social & Family History - Family History Family Medical History: Noncontributory - Tobacco Use Smoking Status *Q: Current Every Day Smoker Years of Tobacco use: 10 Packs/Tins Daily: 0.5 Used Tobacco, but Quit: No - Caffeine Use Caffeine Use: Reports: Coffee - Recreational Drug Use Recreational Drug Use: No - Living Situation & Occupation Living situation: Reports: Single Occupation: Employed ED ROS GENERAL - Review of Systems Review Of Systems: See Below Constitutional: Reports: Malaise, Weakness, Fatigue, Decreased Appetite. Denies : Fever, Chills HEENT: Reports: Ear Pain (Left ear hurts a bit.) Respiratory: Reports: Shortness of Breath, Cough (Severe paroxysmal cough for over a year.). Denies: Wheezing, Pleuritic Chest Pain, Sputum, Hemoptysis, Other Cardiovascular: Reports: No Symptoms Endocrine: Reports: Fatigue, Other (Has acute thyroiditis with TSH is being all over the map over the last year. I merely hyperthyroid) GI/Abdominal: Reports: Decreased Appetite, Vomiting : Reports: No Symptoms Musculoskeletal: Reports: No Symptoms Skin: Reports: No Symptoms Neurological: Reports: No Symptoms ED EXAM, GENERAL - Physical Exam Exam: See Below Exam Limited By: No Limitations General Appearance: Alert, Moderate Distress (Has intermittent severe paroxysmal cough which makes it impossible for him to talk.) Eye Exam: Bilateral Eye: Normal Inspection Ears: Other (Patient has a right serous otitis media and early acute left otitis media.) Nose: Other (Patient has significant swelling of his superior middle turbinates bilaterally with near occlusion of the naris. This is allergic rhinitis.) Throat/Mouth: Other (Mild post nasal drip) Head: Atraumatic ( appreciated. No active infection of the oropharynx noted), Normocephalic Neck: Normal Inspection, Supple, Non-Tender, Full Range of Motion. No: Carotid Bruit, Lymphadenopathy (L), Lymphadenopathy (R), Thyromegaly (Thyroid gland is normal in size but tender to touch suggestive of thyroiditis.) Respiratory/Chest: Normal Breath Sounds, No Accessory Muscle Use, Respiratory Distress. No: Lungs Clear, Chest Non-Tender, Decreased Breath Sounds, Crackles , Rales, Rhonchi, Wheezing, Stridor Cardiovascular: Normal Peripheral Pulses, Regular Rate, Rhythm, No Edema, No Gallop, No Murmur, No Rub GI/Abdominal: Normal Bowel Sounds, Soft, Non-Tender, No Organomegaly, No Abnormal Bruit, No Mass, Pelvis Stable Back Exam: Normal Inspection, Full Range of Motion. No: CVA Tenderness (L), CVA Tenderness (R) Extremities: Normal Inspection, Normal Range of Motion, Non-Tender, No Pedal Edema Neurological: Alert, Oriented, CN II-XII Intact, Normal Cognition, Normal Gait Psychiatric: Normal Affect, Normal Mood Course - Vital Signs Last Recorded V/S: Last Vital Signs Temp 36.8 C 10/11/17 22:38 Pulse 88 10/11/17 22:38 Resp 18 10/11/17 22:38 BP 130/83 10/11/17 22:38 Pulse Ox 93 L 10/11/17 22:38 - Orders/Labs/Meds Orders: Active Orders 24 hr Category Date Time Status Chest 2V [CR] Stat Exams 10/11/17 22:44 Taken Meds: Medications Discontinued Medications Generic Name Dose Route Start Last Admin Trade Name Yue PRN Reason Stop Dose Admin Azithromycin 500 mg 10/12/17 00:09 10/12/17 00:14 Zithromax PO 10/12/17 00:10 500 mg ONETIME ONE Administration Promethazine HCl/Codeine 15 ml 10/12/17 00:09 10/12/17 00:14 Phenergan With Codeine PO 10/12/17 00:10 15 ml ONETIME ONE Administration - Radiology Interpretation Free Text/Narrative:: 37-year-old male presents the ED due to severe paroxysmal cough to the point of emesis 2 tonight. Reports a chronic severe paroxysmal cough for the better part of a year. He has been seen by numerous specialists in regards to the cough. He endocrine endocrinology believes that he has an acute thyroiditis that may or may not be continued into his cough because of irritation of the recurrent laryngeal nerve. Currently has thyroid gland is not enlarged although it is tender. Clinically he has evidence of rhinitis allergic rhinitis with postnasal drip. He has no acute left otitis media and a right serous otitis media. Lungs are clear to auscultation percussion. I strongly encouraged him to go back to a steroid inhaler twice daily to reduce inflammation of the ureter and receptors to help stop the cough. He has Spiriva I believe at home. I believe he should be on Nasacort or Flonase nasal spray every night at bedtime to help alleviate some of his allergic rhinitis and postnasal drip symptoms. Tonight we'll give him to Phenergan With Codeine 15 mils by mouth to help suppress his cough so that he no longer vomits and can sleep. I wrote a prescription for Tussionex 5 mils every 12 hours. That he can take when he is not at work and he developed severe cough at home. He will use Tessalon Perles when he's at work. Also placed him on antibiotic Z-Anderson 500 mg given in the ED and then he's sick to 50 mg once daily for the next 6 days to clear up his ear infection. Follow-up as needed. Departure - Departure Time of Disposition: 00:10 Disposition: Home, Self-Care 01 Condition: Fair Clinical Impression: Cough present for greater than 3 weeks, Post-tussive emesis Allergic rhinitis Qualifiers: Allergic rhinitis trigger: unspecified Allergic rhinitis seasonality: non- seasonal Qualified Code(s): J30.89 - Other allergic rhinitis Left otitis media Qualifiers: Otitis media type: suppurative Chronicity: acute Recurrence: not specified as recurrent Spontaneous tympanic membrane rupture: without spontaneous rupture Qualified Code(s): H66.002 - Acute suppurative otitis media without spontaneous rupture of ear drum, left ear Right serous otitis media Qualifiers: Chronicity: acute Recurrence: not specified as recurrent Qualified Code(s): H65.01 - Acute serous otitis media, right ear - Discharge Information Prescriptions: Azithromycin [Zithromax] 250 mg PO DAILY #6 tab Hydrocodone/Chlorphen P-Stirex [Tussionex Pennkinetic Susp] 5 ml PO Q12H PRN # 100 ml PRN Reason: Cough relief Instructions: Cough, Adult Referrals: Ana Giles DO [Primary Care Provider] - Forms: ED Department Discharge Additional Instructions: Evaluation the emergency room today in regards to severe paroxysmal cough to the point of vomiting. This is on top of a chronic cough for over a year which is felt to be related to thyroiditis. On examination today however there is evidence of postnasal drip with a left ear infection. This may be irritating the upper airway and making Bailee and receptors more sensitive to coughing. Suggest treatment with a Z-Anderson. You are given initial dose of azithromycin in the ED. He will did take 250 mg once daily at bedtime for the next 6 days. You' re given Phenergan with codeine cough syrup 15 mils by mouth in the ED to help alleviate cough overnight see you can get some sleep. Wrote a prescription for Tussionex cough syrup which is very potent. 5 mils every 12 hours needed for cough relief when not at work or operating machinery. To use Tessalon Perles otherwise. I strongly would suggest use of steroid inhaler at least once or twice daily as this is the most likely successful treatment plan to reduce inflammation of the ureter and receptors that are making you cough. - My Orders Last 24 Hours: My Active Orders 10/11/17 22:44 Chest 2V [CR] Stat - Assessment/Plan Last 24 Hours: My Active Orders 10/11/17 22:44 Chest 2V [CR] Stat
[2017-10-12] MEDS ORDERED: Codeine/Promethazine 10-6.25 MG/5 ML Syrup 5 ML UD Cup PO ONE (00:09)
[2017-10-12] MEDS ORDERED: Azithromycin 250 MG Tab PO ONE (00:09)
--- NOTE | 2017-10-12 07:01 | CR ---
Chest: Two views of the chest were obtained. Comparison: Prior chest x-ray of 08/24/17. Heart size and mediastinum are normal. Lungs are clear. Bony structures are unremarkable. Impression: 1. Nothing acute is seen on two-view chest x-ray. Diagnostic code #1
== END 2017-10-12 00:20 | disposition home or self-care (01) ==
LOC: JD.ED 22:26
DX: H66.002 Acute suppurative otitis media without spontaneous rupture of ear drum, left ear (principal); H65.01 Acute serous otitis media, right ear; J30.89 Other allergic rhinitis; F17.210 Nicotine dependence, cigarettes, uncomplicated; Z79.899 Other long term (current) drug therapy
CPT/HCPCS: 71046; 99283; A9270

== ENCOUNTER 2017-11-15 12:46 | Emergency (ER) | payer OTHER ==
[2017-11-15] MEDS ORDERED: Acetaminophen/oxyCODONE 325-5 MG Tab PO ONE (13:10)
--- NOTE | 2017-11-15 13:20 | EDM.PDOC ---
ED HPI GENERAL MEDICAL PROBLEM - General Chief Complaint: Upper Extremity Injury/Pain Stated Complaint: R HAND INJURY Time Seen by Provider: 11/15/17 13:01 Source of Information: Reports: Patient History Limitations: Reports: No Limitations - History of Present Illness INITIAL COMMENTS - FREE TEXT/NARRATIVE: 37-year-old male presents for evaluation and treatment of injury to the right hand. Reports that the injury occurred last night. States that he was moving air conditioner when he smashed his hand in between air-conditioning unit and the door. He is primarily complaining of pain to the fifth and second metacarpals. No swelling or bruising noted. He has been wrapping it. No open wounds. Patient Is right-handed. Duration: Day(s): (1) Location: Reports: Upper Extremity, Right Right Hand Pain Score (Numeric/FACES): 8 - Related Data Allergies Allergy/AdvReac Type Severity Reaction Status Date / Time No Known Allergies Allergy Verified 11/15/17 12:53 Home Meds: Home Meds traZODone 100 mg PO BEDTIME PRN 07/27/15 [History] Albuterol [IJD: Ventolin HFA] 2 puff INH Q6HR PRN #18 gm 07/28/16 [Rx] Budesonide/Formoterol Fumarate [Symbicort 160-4.5 Mcg Inhaler] 1 - 2 puff INH DAILY 03/03/17 [History] Cetirizine [ZyrTEC] 10 mg PO DAILY 08/24/17 [History] Dextroamphetamine/Amphetamine [Adderall Xr 30 mg Capsule] 1 tab PO DAILY [History] Dextroamphetamine/Amphetamine [Adderall] 30 mg PO DAILY 08/24/17 [History] Azithromycin [Zithromax] 250 mg PO DAILY #6 tab 10/12/17 [Rx] Hydrocodone/Chlorphen P-Stirex [Tussionex Pennkinetic Susp] 5 ml PO Q12H PRN # 100 ml 10/12/17 [Rx] Ibuprofen 800 mg PO Q6HR PRN #20 tablet 11/15/17 [Rx] Past Medical History Respiratory History: Reports: Other (See Below) Other Respiratory History: spot on right lower lobe Genitourinary History: Reports: Pyelonephritis, Renal Calculus Musculoskeletal History: Reports: Fracture Neurological History: Reports: Headaches, Chronic Other Neuro History: states had "tension headaches when I was in the ." Psychiatric History: Reports: PTSD - Infectious Disease History Infectious Disease History: Reports: Chicken Pox - Past Surgical History HEENT Surgical History: Reports: Oral Surgery Musculoskeletal Surgical History: Reports: Arthroscopic Knee Social & Family History - Family History Family Medical History: Noncontributory - Tobacco Use Smoking Status *Q: Current Every Day Smoker Years of Tobacco use: 19 Packs/Tins Daily: 1 - Caffeine Use Caffeine Use: Reports: Coffee - Recreational Drug Use Recreational Drug Use: No - Living Situation & Occupation Living situation: Reports: Single Occupation: Employed Review of Systems - Review of Systems Review Of Systems: See Below Musculoskeletal: Reports: Hand Pain (right hand 5th and 2th metacarpals), Other (reports pain with ROM, pain with making a fist). Denies: Joint Swelling Skin: Denies: Bruising, Wound ED EXAM, GENERAL - Physical Exam Exam: See Below Exam Limited By: No Limitations General Appearance: Alert, WD/WN, No Apparent Distress Eye Exam: Bilateral Eye: Normal Inspection Ears: Normal External Exam Nose: Normal Inspection Throat/Mouth: Normal Inspection, Normal Lips, Normal Voice, No Airway Compromise Respiratory/Chest: No Respiratory Distress Cardiovascular: Normal Peripheral Pulses, Regular Rate, Rhythm Peripheral Pulses: 2+: Radial (R) Extremities: Other (tenderness to palpation to the 4th and 2nd metacarals, right hand; reports pain with making a fist) Neurological: Alert, Oriented, Normal Cognition Psychiatric: Normal Affect, Normal Mood Skin Exam: Warm, Dry, Normal Color Course - Vital Signs Last Recorded V/S: Last Vital Signs Temp 98.6 F 11/15/17 14:34 Pulse 73 11/15/17 14:34 Resp 17 11/15/17 14:34 BP 113/73 11/15/17 14:34 Pulse Ox 97 11/15/17 14:34 - Orders/Labs/Meds Meds: Medications Discontinued Medications Generic Name Dose Route Start Last Admin Trade Name Freq PRN Reason Stop Dose Admin Oxycodone/Acetaminophen 1 tab 11/15/17 13:10 11/15/17 13:46 Percocet 325-5 Mg PO 11/15/17 13:11 1 tab ONETIME ONE Administration - Radiology Interpretation Free Text/Narrative:: Right hand: 4 views showing the right hand were obtained. Comparison: Prior right third finger study of 10/19/15 is available. Findings: Joint spaces are preserved. No acute fracture or other bony abnormality is seen. Impression: 1. No abnormality is seen on right hand exam. - Re-Assessments/Exams Free Text/Narrative Re-Assessment/Exam: 11/15/17 14:22 Reviewed the imaging with the patient. Nursing staff will wrap the hand. Patient requests medication for pain. Rx given for ibuprofen 800mg for pain. Will discharge home at this time. Discharge as documented. Departure - Departure Time of Disposition: 14:22 Disposition: Home, Self-Care 01 Condition: Fair Clinical Impression: Soft tissue injury, Hand crush injury - Discharge Information Prescriptions: Ibuprofen 800 mg PO Q6HR PRN #20 tablet PRN Reason: Pain Instructions: Crush Injury of the Hand, [id number] Referrals: Ana Giles DO [Primary Care Provider] - Forms: ED Department Discharge, ED Return to Work/School Form Additional Instructions: Ibuprofen 800 mg every 6-8 hours as needed for pain. Elevate as needed to help reduce swelling. Ice as needed to help with pain and swelling. Expect be sore for the next few days. The first 3 days of either worse. If your symptoms persist beyond 1 week recommend follow-up with family medicine to have your hand rechecked. Note given for work. Please return the ER if your symptoms change or worsen.
[2017-11-15 14:41] VITALS: BP 113/73
--- NOTE | 2017-11-15 15:00 | CR ---
Right hand: Four views showing the right hand were obtained. Comparison: Prior right third finger study of 10/19/15 is available. Findings: Joint spaces are preserved. No acute fracture or other bony abnormality is seen. Impression: 1. No abnormality is seen on right hand exam. Diagnostic code #1
== END 2017-11-15 14:37 | disposition home or self-care (01) ==
LOC: JD.ED 12:46
DX: S67.21XA Crushing injury of right hand, initial encounter (principal); F17.210 Nicotine dependence, cigarettes, uncomplicated; Z79.899 Other long term (current) drug therapy; W23.1XXA Caught, crushed, jammed, or pinched between stationary objects, initial encounter
CPT/HCPCS: 73130; 99283; A9270

== ENCOUNTER 2018-09-23 21:45 | Emergency (ER) | payer OTHER ==
[2018-09-23 22:04] VITALS: BP 169/124
--- NOTE | 2018-09-23 22:33 | EDM.PDOC ---
ED HPI GENERAL MEDICAL PROBLEM - General Chief Complaint: ENT Problem Stated Complaint: TOOTH AND JAW PAIN Time Seen by Provider: 09/23/18 22:30 Source of Information: Reports: Patient History Limitations: Reports: No Limitations - History of Present Illness INITIAL COMMENTS - FREE TEXT/NARRATIVE: 37-year-old male presents for evaluation and treatment of pain to the left upper molar. Patient reports that the pain started suddenly yesterday. He has been using Orajel but the pain is feeling worse. He denies any associated earaches, fevers, nausea, vomiting or any bad taste in his mouth. He reports pain is radiating into his jaw. He states his been quite sometime since he seen a dentist. He denies any recent broken teeth. 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 [No Known Home Meds] 09/23/18 [History] Past Medical History - Past Health History Medical/Surgical History: Denies Medical/Surgical History Respiratory History: Reports: Other (See Below) Other Respiratory History: spot on right lower lobe Genitourinary History: Reports: Pyelonephritis, Renal Calculus Musculoskeletal History: Reports: Fracture Neurological History: Reports: Headaches, Chronic Other Neuro History: states had "tension headaches when I was in the ." Psychiatric History: Reports: PTSD - Infectious Disease History Infectious Disease History: Reports: Chicken Pox - Past Surgical History HEENT Surgical History: Reports: Oral Surgery Musculoskeletal Surgical History: Reports: Arthroscopic Knee Social & Family History - Family History Family Medical History: Noncontributory - Tobacco Use Smoking Status *Q: Current Every Day Smoker Years of Tobacco use: 12 Packs/Tins Daily: 1 - Caffeine Use Caffeine Use: Reports: Coffee - Recreational Drug Use Recreational Drug Use: No - Living Situation & Occupation Living situation: Reports: Single Occupation: Employed ED ROS ENT - Review of Systems Review Of Systems: See Below Constitutional: Denies: Fever, Chills HEENT: Reports: Dental Pain (left upper molar). Denies: Ear Pain, Sinus Problem GI/Abdominal: Denies: Nausea, Vomiting ED EXAM, ENT - Physical Exam Exam: See Below Exam Limited By: No Limitations General Appearance: Alert, WD/WN, Mild Distress Eye Exam: Bilateral Eye: Normal Inspection Ears: Normal External Exam, Normal Canal, Hearing Grossly Normal, Normal TMs Nose: Normal Inspection Mouth/Throat: Normal Inspection, Normal Gums, Dental Abcess (#15), Dental Pain ( #15), Dental Tenderness (#15) Respiratory/Chest: No Respiratory Distress, Lungs Clear, Normal Breath Sounds Cardiovascular: Normal Peripheral Pulses, Regular Rate, Rhythm, No Murmur Neurological: Alert, Oriented, Normal Cognition Psychiatric: Normal Affect, Normal Mood Course - Vital Signs Last Recorded V/S: Last Vital Signs Temp 98.3 F 09/23/18 22:01 Pulse 73 09/23/18 22:01 Resp 19 09/23/18 22:01 BP 169/124 H 09/23/18 22:01 Pulse Ox 99 09/23/18 22:01 Departure - Departure Time of Disposition: 22:31 Disposition: Home, Self-Care 01 Condition: Fair Clinical Impression: Dental abscess - Discharge Information *PRESCRIPTION DRUG MONITORING PROGRAM REVIEWED*: Yes *COPY OF PRESCRIPTION DRUG MONITORING REPORT IN PATIENT KEVIN: No Instructions: Dental Abscess, [id number] Referrals: Francisca Leal MD [Primary Care Provider] - Forms: ED Department Discharge Additional Instructions: prescription for Augmentin 875/125 twice a day for 10 days and [place] one or 2 tabs every 4-6 hours as needed for pain #20 give entrance meds. Take the prescriptions as prescribed. Take Augmentin twice a day. Take with food. Can cause side effects of upset stomach, nausea, diarrhea. Recommend yogurt or probiotics to help negate the is side effects. Recommend [id number] Tylenol Motrin seen for pain. Do not take more than 4 g of Tylenol from all sources 1 day. Do not take more than 3200 mg of ibuprofen from all sources in 1 day. For pain orally by Tylenol or Motrin may take [place] one or 2 tabs every 4-6 hours for pain. [place] is habit-forming, take as few of these as needed to control your pain. Do not drive or operate machinery within 10 hours of taking [place]. There is a 325 mg of Tylenol in each [place]. Continues Orajel for additional pain relief. Follow up with a dentist as soon as you are able to. A list has been provided for your dentist in the area. Please return to the ER if your symptoms change or worsen.
== END 2018-09-23 22:49 | disposition home or self-care (01) ==
LOC: JD.ED 21:45
DX: K04.7 Periapical abscess without sinus (principal); F17.210 Nicotine dependence, cigarettes, uncomplicated
CPT/HCPCS: 99282; 99283

== ENCOUNTER 2019-07-09 08:49 | Emergency (ER) | payer OTHER ==
[2019-07-09] MEDS ORDERED: Ondansetron 4 MG/2 ML SDV IVPUSH ONE (09:34)
[2019-07-09] MEDS ORDERED: Acetaminophen 325 MG Tab PO ONE (09:35)
--- NOTE | 2019-07-09 09:39 | EDM.PDOC ---
ED HPI GENERAL MEDICAL PROBLEM - General Chief Complaint: Fever Stated Complaint: HIGH HEART RATE Time Seen by Provider: 07/09/19 09:34 Source of Information: Reports: Patient History Limitations: Reports: No Limitations - History of Present Illness INITIAL COMMENTS - FREE TEXT/NARRATIVE: 38-year-old male presents to the ED generally not feeling well since arising this morning. He reports he has had intermittent problems with a cough for the better part of 3 weeks. Intermittently productive. Cough this morning is more nonproductive and enough to make him dry heave. He has an associated headache, generalized myalgia, loss of appetite. He has all the signs and symptoms of influenza. He recognized that he was ill when his Fitbit told him that his heart rate was too high. He is in sinus tachycardia from 105 to 145/min. He is markedly febrile on examination. Not taken any medication yet today. Onset: Today Onset Date: 07/09/19 Onset Time: 07:00 Duration: Hour(s): Location: Reports: Head, Chest (Generalized pounding headache.), Generalized ( Visible nonproductive cough to the point of near emesis at times.), Other ( Lyse myalgia) Quality: Reports: Ache Severity: Moderate (Lysed aching) Improves with: Reports: None Worsens with: Reports: None Context: Reports: Other (Rehan he is occurrence). Denies: Activity, Exercise , Lifting, Sick Contact, Trauma Associated Symptoms: Reports: Cough, Fever/Chills, Headaches, Loss of Appetite, Malaise, Nausea/Vomiting, Weakness. Denies: Confusion, Chest Pain, cough w sputum (Nonproductive cough), Diaphoresis, Rash, Seizure (Nausea with dry heaves secondary to cough or posttussive coughing.), Shortness of Breath, Syncope Treatments PAPERHANGER: Reports: Other (see below) - Related Data Allergies Allergy/AdvReac Type Severity Reaction Status Date / Time No Known Allergies Allergy Verified 07/09/19 09:13 Home Meds: Home Meds Benzonatate [Tessalon Perle] 200 mg PO Q8H PRN #24 capsule 07/09/19 [Rx] Oseltamivir [Tamiflu] 75 mg PO BID #10 cap 07/09/19 [Rx] buPROPion [Wellbutrin] 75 mg PO BEDTIME 07/09/19 [History] traZODone HCl [Trazodone HCl] 50 mg PO BEDTIME 07/09/19 [History] Past Medical History - Past Health History Medical/Surgical History: Denies Medical/Surgical History Respiratory History: Reports: Other (See Below) Other Respiratory History: spot on right lower lobe Genitourinary History: Reports: Pyelonephritis, Renal Calculus Musculoskeletal History: Reports: Fracture Neurological History: Reports: Headaches, Chronic Other Neuro History: states had "tension headaches when I was in the ." Psychiatric History: Reports: PTSD - Infectious Disease History Infectious Disease History: Reports: Chicken Pox - Past Surgical History HEENT Surgical History: Reports: Oral Surgery Musculoskeletal Surgical History: Reports: Arthroscopic Knee Social & Family History - Family History Family Medical History: Noncontributory - Tobacco Use Smoking Status *Q: Current Every Day Smoker Years of Tobacco use: 20 Packs/Tins Daily: 0.5 - Caffeine Use Caffeine Use: Reports: Coffee - Recreational Drug Use Recreational Drug Use: No - Living Situation & Occupation Living situation: Reports: Single Occupation: Employed ED ROS GENERAL - Review of Systems Review Of Systems: See Below Constitutional: Reports: Fever, Chills, Malaise, Weakness, Fatigue, Decreased Appetite HEENT: Reports: No Symptoms Respiratory: Reports: Cough. Denies: Shortness of Breath, Wheezing, Pleuritic Chest Pain, Sputum (Nonproductive) Cardiovascular: Reports: Palpitations (Is aware of rapid heart rate) Endocrine: Reports: Fatigue ( regular sinus tachycardia.) GI/Abdominal: Reports: Decreased Appetite, Nausea. Denies: Vomiting (Heaving away bed with coughing) : Reports: No Symptoms Musculoskeletal: Reports: Muscle Pain Skin: Reports: No Symptoms (Neurolyse myalgia) Neurological: Reports: Headache. Denies: Paresthesia, Tremors Psychiatric: Reports: Depression (Is currently on 2 antidepressants trazodone and bupropion.) Hematologic/Lymphatic: Reports: No Symptoms Immunologic: Reports: No Symptoms ED EXAM, GENERAL - Physical Exam Exam: See Below Exam Limited By: No Limitations General Appearance: Alert, WD/WN, Mild Distress, Other (He is very warm to palpation. Temperature is registered at 38.7 by nurses recording heart rate is 120 at the bedside respiratory is 19 with O2 sats of 96% on room air. BP is 141 /99.) Eye Exam: Bilateral Eye: Normal Inspection, PERRL Ears: Normal TMs Throat/Mouth: Normal Inspection, Normal Lips, Normal Teeth, Normal Oropharynx, Other (Fuhs mild inflammation of the oropharynx without exudate.) Head: Atraumatic, Normocephalic Neck: Normal Inspection, Supple, Non-Tender, Full Range of Motion. No: Lymphadenopathy (L), Lymphadenopathy (R) Respiratory/Chest: No Respiratory Distress, Lungs Clear, Normal Breath Sounds, No Accessory Muscle Use. No: Rales, Rhonchi, Wheezing Cardiovascular: Normal Peripheral Pulses, No Murmur, No Rub, Tachycardia. No: Regular Rate, Rhythm, No Edema, No Gallop (Sinus tachycardia) Peripheral Pulses: 3+: Posterior Tibial (L), Posterior Tibial (R), Dorsalis Pedis (L), Dorsalis Pedis (R) GI/Abdominal: Normal Bowel Sounds, Soft, Non-Tender, No Organomegaly, No Abnormal Bruit Back Exam: Normal Inspection, Full Range of Motion. No: CVA Tenderness (L), CVA Tenderness (R) Extremities: Normal Inspection, Normal Range of Motion, Non-Tender, No Pedal Edema, Normal Capillary Refill Neurological: Alert, Oriented, CN II-XII Intact, Normal Cognition, Normal Gait Psychiatric: Normal Affect, Normal Mood Skin Exam: Warm, Dry, Intact, Normal Color, No Rash Course - Vital Signs Last Recorded V/S: Last Vital Signs Temp 37.3 C 07/09/19 10:35 Pulse 99 07/09/19 10:35 Resp 16 07/09/19 10:35 BP 144/84 H 07/09/19 10:35 Pulse Ox 97 07/09/19 10:35 - Orders/Labs/Meds Orders: Active Orders 24 hr Category Date Time Status Dextrose 5%-0.9% NaCl [Dextrose 5%-Normal Saline] 1,000 Med 07/09/19 09:45 Active ml IV ASDIRECTED Ketorolac [Toradol] Med 07/09/19 09:45 Active 30 mg IVPUSH ONETIME Medication Orders Dextrose/Sodium Chloride (Dextrose 5%-Normal Saline) 1,000 mls @ 999 mls/hr IV ASDIRECTED KELL Last Admin: 07/09/19 09:45 Dose: 999 mls/hr Ketorolac Tromethamine (Toradol) 30 mg IVPUSH ONETIME KELL Last Admin: 07/09/19 09:49 Dose: 30 mg Meds: Medications Generic Name Dose Route Start Last Admin Trade Name Yue PRN Reason Stop Dose Admin Dextrose/Sodium Chloride 1,000 mls @ 999 mls/hr 07/09/19 09:45 07/09/19 09:45 Dextrose 5%-Normal Saline IV 999 mls/hr ASDIRECTED KELL Administration Ketorolac Tromethamine 30 mg 07/09/19 09:45 07/09/19 09:49 Toradol IVPUSH 30 mg ONETIME KELL Administration Discontinued Medications Generic Name Dose Route Start Last Admin Trade Name Yue PRN Reason Stop Dose Admin Acetaminophen 975 mg 07/09/19 09:35 07/09/19 09:43 Tylenol PO 07/09/19 09:36 975 mg ONETIME ONE Administration Ondansetron HCl 4 mg 07/09/19 09:34 07/09/19 09:43 Zofran IVPUSH 07/09/19 09:35 4 mg ONETIME ONE Administration - Radiology Interpretation Free Text/Narrative:: 38-year-old male presents to the ED with awakening with high fever this morning. Associated headache paroxysmal nonproductive cough and generalized myalgia and complete loss of appetite. All the signs and symptoms of influenza. Ports however that has been coughing intermittently for the better part of 3 weeks. His lungs are clear to auscultation percussion however I will have a chest x-ray ordered. Plan influenza screen to be done. In the meantime he will have IV fluids D5 normal saline at open. Given Zofran 4 mg IV with Toradol 30 mg IV for headache and nausea relief. Tylenol 9 7 5 mg was given orally 15 minutes after the Zofran to help bring down his fever. - Re-Assessments/Exams Free Text/Narrative Re-Assessment/Exam: 07/09/19 10:55 Influenza screen returned negative. I will therefore have a single portable chest x-ray carried out. 07/09/19 12:35: I subsequently I was told by radiology that a 2 view chest x- ray had been done on this patient earlier today. I am unclear who ordered this. At any rate it is clear with no signs of pneumonia. Patient clinically has all the signs and symptoms of influenza. He will be treated with Tamiflu 75 mg twice daily for the next 5 days. Advised he will have to be off work for the next 6 days due to being contagious to others via cough droplets. Motrin 600 mg every 6 hours as needed for relief of headache, body ache, fever relief. Prescription written for the Tamiflu and he does not wish any narcotics because he has had an addiction problem in the past. Prescription written for bands alginate or Tessalon Perles 200 mg every 8 hours as necessary for cough relief x24 tablets. Follow-up as needed. Departure - Departure Time of Disposition: 12:05 Disposition: Home, Self-Care 01 Condition: Fair Clinical Impression: Influenza A, Influenza - Discharge Information *PRESCRIPTION DRUG MONITORING PROGRAM REVIEWED*: Not Applicable *COPY OF PRESCRIPTION DRUG MONITORING REPORT IN PATIENT KEVIN: Not Applicable Prescriptions: Benzonatate [Tessalon Perle] 200 mg PO Q8H PRN #24 capsule PRN Reason: cough relief Oseltamivir [Tamiflu] 75 mg PO BID #10 cap Instructions: Influenza, Adult, [id number] Referrals: Francisca Leal MD [Primary Care Provider] - Forms: ED Department Discharge, ED Return to Work/School Form Additional Instructions: Evaluation in the emergency room today in regards to development of high fever combination productive cough with headache and generalized body aches and loss of appetite. These are all signs and symptoms of influenza.labs reveal influenza A infection. You are to take plenty of fluids such as Gatorade or Powerade to maintain hydration. Diet as tolerated. Antiviral medicine Tamiflu is to be taken 75 mg twice daily for the next 5 days to bring the inflammation and infection under control. Prescription written for Tessalon Perles 200 mg tablet 1 every 8 hours as necessary for relief of severe cough. Suggest taking a good hour before going to bed as it takes about an hour to work. To new Motrin 600 mg every 6 hours as needed to reduce fever and control headache and body ache pain. Out of work for the next 6 days as you are considered contagious to others for 7 days from the time you develop symptoms. Sepsis Event Note - Evaluation Sepsis Screening Result: Possible Sepsis Risk - Focused Exam Vital Signs: Vital Signs Temp Pulse Resp BP Pulse Ox 07/09/19 10:35 37.3 C 99 16 144/84 H 97 07/09/19 09:11 38.7 C H 120 H 19 141/99 H 96 Date Exam was Performed: 07/09/19 Time Exam was Performed: 12:35 - My Orders Last 24 Hours: My Active Orders 07/09/19 09:45 Dextrose 5%-0.9% NaCl [Dextrose 5%-Normal Saline] 1,000 ml IV ASDIRECTED Ketorolac [Toradol] 30 mg IVPUSH ONETIME - Assessment/Plan Last 24 Hours: My Active Orders 07/09/19 09:45 Dextrose 5%-0.9% NaCl [Dextrose 5%-Normal Saline] 1,000 ml IV ASDIRECTED Ketorolac [Toradol] 30 mg IVPUSH ONETIME
[2019-07-09] MEDS ORDERED: Dextrose 5%-0.9% NaCl 1,000 ML IV SCH (09:45)
[2019-07-09] MEDS ORDERED: Ketorolac 30 MG/ML SDV IVPUSH SCH (09:45)
--- NOTE | 2019-07-09 10:14 | CR ---
Chest: Two views of the chest were obtained. Comparison: Prior chest CT study of 03/26/19 and chest x-ray of 10/11/17. Heart size and mediastinum are normal. Lungs show no acute parenchymal change. Bony structures are unremarkable. Impression: 1. Nothing acute is appreciated on two-view chest x-ray. Diagnostic code #1 This report was dictated in [place] Standard Time
[2019-07-09 10:36] VITALS: BP 144/84; PULSE 99
== END 2019-07-09 12:45 | disposition home or self-care (01) ==
LOC: JD.ED 08:49
DX: J10.1 Influenza due to other identified influenza virus with other respiratory manifestations (principal); F17.210 Nicotine dependence, cigarettes, uncomplicated; Z79.899 Other long term (current) drug therapy
CPT/HCPCS: 71046; 87804; 96361; 96374; 99284; A9270; J1885; J2405; J7042; 99283

== ENCOUNTER 2021-11-17 04:05 | Emergency (ER) | payer OTHER ==
[2021-11-17 04:25] VITALS: BP 178/112; PULSE 60
[2021-11-17] MEDS ORDERED: Ketorolac 30 MG/ML SDV IVPUSH ONE (04:38)
[2021-11-17] MEDS ORDERED: Ondansetron 4 MG/2 ML SDV IVPUSH ONE ×2 (04:38→06:38)
[2021-11-17] MEDS ORDERED: Lactated Ringers 1,000 ML IV SCH (04:45)
[2021-11-17] MEDS ORDERED: Tamsulosin 0.4 MG Cap.ER PO ONE (06:12)
[2021-11-17] MEDS ORDERED: traMADol 50 MG Tab PO ONE (06:38)
== END 2021-11-17 07:50 | disposition home or self-care (01) ==
LOC: JD.ED 04:05
DX: N13.2 Hydronephrosis with renal and ureteral calculous obstruction (principal); Z79.899 Other long term (current) drug therapy
CPT/HCPCS: 36415; 74150; 80053; 81001; 85025; 96361; 96374; 96375; 96376; 99284; A9270; J1885; J2405; J7120

== ENCOUNTER 2021-12-03 01:26 | Emergency (ER) | payer OTHER ==
[2021-12-03 01:38] VITALS: BP 150/96; PULSE 83
[2021-12-03] MEDS ORDERED: Ketorolac 30 MG/ML SDV IVPUSH STA (01:49)
== END 2021-12-03 03:19 | disposition home or self-care (01) ==
LOC: JD.ED 01:26
DX: G89.18 Other acute postprocedural pain (principal); R31.0 Gross hematuria; Z79.899 Other long term (current) drug therapy
CPT/HCPCS: 74176; 81001; 87086; 96374; 99284; J1885

== ENCOUNTER 2022-06-18 14:18 | Emergency (ER) | payer OTHER ==
[2022-06-18 14:33] VITALS: BP 150/98; PULSE 82
[2022-06-18] MEDS ORDERED: Ketorolac 30 MG/ML SDV IM ONE (15:26)
== END 2022-06-18 16:00 | disposition home or self-care (01) ==
LOC: JD.ED 14:18
DX: R07.81 Pleurodynia (principal); F17.210 Nicotine dependence, cigarettes, uncomplicated
CPT/HCPCS: 96372; 99283; J1885

== ENCOUNTER 2022-09-08 18:04 | Emergency (ER) | payer OTHER ==
[2022-09-08 18:39] LABS: BASOPHILS ABSOLUTE AUTO 0.02 K/mm3 (0.01-0.08); BASOPHILS PERCENT AUTO 0.3 % (0.1-1.2); EOSINOPHILS ABSOLUTE AUTO 0.16 K/mm3 (0.04-0.54); EOSINOPHILS PERCENT AUTO 2.1 (0.8-7.0); HEMATOCRIT 46.9 % (40.1-51.0); HEMOGLOBIN 16.1 gm/dl (13.7-17.5); IMMATURE GRAN ABSOLUTE AUTO 0.02 K/mm3 (0.00-0.10); IMMATURE GRAN PERCENT AUTO 0.3 % (<=1.0); LYMPHOCYTES ABSOLUTE AUTO 2.07 K/mm3 (1.32-3.57); LYMPHOCYTES PERCENT AUTO 26.8 % (21.8-53.1); MEAN CORPUSCULAR HGB CONC 34.3 g/dl (32.2-35.5); MEAN CORPUSCULAR VOLUME 84.4 fl (79.0-92.2); MEAN PLATELET VOLUME 10.8 fl (9.4-12.3); MONOCYTES ABSOLUTE AUTO 0.48 K/mm3 (0.30-0.82); MONOCYTES PERCENT AUTO 6.2 % (5.3-12.2); NEUTROPHILS ABSOLUTE AUTO 4.97 K/mm3 (1.78-5.38); NEUTROPHILS PERCENT AUTO 64.3 % (34.0-67.9); PLATELET COUNT,PLT 178 K/mm3 (163-337); RED BLOOD CELL COUNT 5.56 M/mm3 (4.63-6.08); WHITE BLOOD CELL COUNT,WBC 7.72 K/mm3 (4.23-9.07)
[2022-09-08 19:05] LABS: INR 1.06; PROTHROMBIN TIME 11.3 SECONDS (9.7-12.0)
[2022-09-08 19:07] LABS: D-DIMER QUANTITATIVE < 0.19 mg/L (0.19-0.50)
[2022-09-08 19:12] LABS: A/G RATIO 1.1 (1-2); ALBUMIN 3.9 g/dl (3.4-5.0); ANION GAP 14.9 (5-15); BILIRUBIN TOTAL 0.7 mg/dL (0.2-1.0); CALCIUM 8.9 mg/dL (8.5-10.1); MAGNESIUM 1.8 mg/dL (1.8-2.4); POTASSIUM,K 3.9 mEq/L (3.5-5.1); PROTEIN TOTAL,TP 7.4 g/dl (6.4-8.2)
[2022-09-08] MEDS ORDERED: Sodium Chloride 0.9% 1,000 ML IV STA (19:12)
[2022-09-08 19:16] LABS: EST CRCL DRUG DOSING (CG) 95.95 mL/min
[2022-09-08 23:01] VITALS: BP 148/87; PULSE 74
== END 2022-09-08 21:38 | disposition home or self-care (01) ==
LOC: JD.ED 18:04
DX: R07.89 Other chest pain (principal); I10 Essential (primary) hypertension
CPT/HCPCS: 36415; 71045; 71045-26; 80053; 83735; 84443; 84484; 85025; 85379; 85610; 93005; 93010; 96360; 99283; 99285-25; J7030

== ENCOUNTER 2023-01-31 05:32 | Emergency (ER) | payer OTHER ==
[2023-01-31] MEDS: Labetalol 100 MG/20 ML MDV IVPUSH ONE (06:05)
[2023-01-31] MEDS: LORazepam 2 MG/ML SDV IVPUSH ONE (06:05)
[2023-01-31 06:32] LABS: BASOPHILS PERCENT AUTO 0.3 % (0.0-1.0); EOSINOPHILS ABSOLUTE AUTO 0.3 K/mm3 (0.0-0.4); EOSINOPHILS PERCENT AUTO 3.1 % (0.0-6.0); HEMATOCRIT 51.7 % (42.0-52.0); HEMOGLOBIN 17.3 gm/dl (14.0-18.0); IMMATURE GRAN ABSOLUTE AUTO 0.02 K/mm3 (0.00-0.05); IMMATURE GRAN PERCENT AUTO 0.3 % (0.0-0.4); LYMPHOCYTES ABSOLUTE AUTO 2.9 K/mm3 (1.0-4.8); LYMPHOCYTES PERCENT AUTO 36.5 % (24.0-44.0); MEAN CORPUSCULAR HEMOGLOBIN 29.3 pg (28.0-32.0); MEAN CORPUSCULAR HGB CONC 33.5 g/dl (32.0-36.0); MEAN CORPUSCULAR VOLUME 87.6 fl (83.0-99.0); MEAN PLATELET VOLUME 11.3 fl (9.4-12.4); MONOCYTES ABSOLUTE AUTO 0.5 K/mm3 (0.0-0.8); MONOCYTES PERCENT AUTO 6.1 % (0.0-8.0); NEUTROPHILS ABSOLUTE AUTO 4.3 K/mm3 (1.8-7.7); NEUTROPHILS PERCENT AUTO 53.7 % (41.0-71.0); PLATELET COUNT,PLT 201 K/mm3 (150-400); WHITE BLOOD CELL COUNT,WBC 7.99 K/mm3 (3.9-11.3)
[2023-01-31] MEDS: hydrALAZINE 20 MG/ML SDV IVPUSH ONE (06:41)
[2023-01-31 06:44] LABS: INR 0.96; PROTHROMBIN TIME 10.3 SECONDS (9.7-12.0)
[2023-01-31 06:52] VITALS: PULSE 81
[2023-01-31 06:52] LABS: ALANINE AMINOTRANSFERASE,ALT 34 U/L (16-63); ALBUMIN 4.1 g/dl (3.4-5.0); ALKALINE PHOSPHATASE 109 U/L (46-116); ANION GAP 14.4 (5-15); ASPARTATE AMNIOTRANSFERASE,AST 14 U/L (15-37); BILIRUBIN TOTAL 0.3 mg/dL (0.2-1.0); BLOOD UREA NITROGEN,BUN 8 mg/dL (7-18); BUN/CREATININE RATIO 7.3 (14-18); CALCIUM 9.4 mg/dL (8.5-10.1); CARBON DIOXIDE,CO2 25 mEq/L (21-32); CHLORIDE,CL 102 mEq/L (98-107); CREATININE 1.1 mg/dL (0.7-1.3); EST CRCL DRUG DOSING (CG) 80.56 mL/min; ESTIMATED GFR 87 mL/min (>60); GLUCOSE RANDOM 146 mg/dL (70-99); POTASSIUM,K 3.4 mEq/L (3.5-5.1); PROTEIN TOTAL,TP 8.1 g/dl (6.4-8.2); SODIUM,NA 138 mEq/L (136-145)
[2023-01-31 06:55] LABS: APPEARANCE,URINE CLEAR (Clear); BILIRUBIN,URINE NEGATIVE (Negative); COLOR,URINE YELLOW (Yellow); GLUCOSE,URINE NEGATIVE (Negative); KETONES,URINE NEGATIVE (Negative); LEUKOCYTE ESTERASE,URINE TRACE (Negative); NITRITE,URINE NEGATIVE (Negative); OCCULT BLOOD,URINE NEGATIVE (Negative); PH,URINE 6.5 (5.0-8.0); PROTEIN,URINE NEGATIVE (Negative); UROBILINOGEN,URINE 0.2 (0.2-1.0)
[2023-01-31 07:01] LABS: TROPONIN I HIGH SENSITIVITY < 4 pg/mL (<=76)
[2023-01-31 07:22] LABS: RBC,URINE 0-5 /hpf (0-5); WBC,URINE 0-5 /hpf (0-5)
[2023-01-31 07:23] LABS: AMORPHOUS SEDIMENT,URINE MODERATE /hpf (NOT SEEN); BACTERIA,URINE MODERATE /hpf (FEW); MUCUS,URINE MODERATE /hpf (FEW); SQUAMOUS EPITHELIAL CELLS,UR 0-5 /hpf (0-5)
[2023-01-31 07:32] VITALS: BP 136/83
== END 2023-01-31 08:08 | disposition home or self-care (01) ==
LOC: JD.ED 05:32
DX: I10 Essential (primary) hypertension (principal); Z79.899 Other long term (current) drug therapy
CPT/HCPCS: 36415; 70450; 70450-26; 80053; 81001; 84484; 85025; 85610; 93005; 93010; 96374; 96375; 99284; 99284-25; J0360; J2060; J3490

== ENCOUNTER 2023-01-31 18:14 | Emergency (ER) | payer OTHER ==
[2023-01-31] MEDS ORDERED: Ketorolac 30 MG/ML SDV IVPUSH ONE (18:44)
[2023-01-31] MEDS ORDERED: Ondansetron 4 MG/2 ML SDV IVPUSH ONE (18:44)
[2023-01-31] MEDS ORDERED: Sodium Chloride 0.9% 1,000 ML IV STA (18:44)
[2023-01-31] MEDS ORDERED: diphenhydrAMINE 50 MG/ML SDV IVPUSH ONE (18:45)
[2023-01-31 19:45] LABS: T4 FREE 1.06 ng/dL (0.76-1.46); TSH 0.86 uIU/mL (0.358-3.74)
[2023-01-31] MEDS ORDERED: Propranolol 20 MG Tab PO ONE (20:35)
[2023-02-01 01:19] VITALS: BP 137/107; PULSE 84
== END 2023-01-31 21:18 | disposition home or self-care (01) ==
LOC: JD.ED 18:14
DX: I10 Essential (primary) hypertension (principal); F17.210 Nicotine dependence, cigarettes, uncomplicated; Z86.16 Personal history of COVID-19
CPT/HCPCS: 36415; 84439; 84443; 96374; 96375; 99284; J1200; J1885; J2405; J7030

== ENCOUNTER 2023-02-15 17:38 | Emergency (ER) | payer OTHER ==
[2023-02-15] MEDS ORDERED: Aspirin 81 MG Tab.Chew PO ONE (18:21)
[2023-02-15] MEDS ORDERED: Sodium Chloride 0.9% 10 ML Syringe FLUSH PRN (18:25)
[2023-02-15] MEDS ORDERED: Ketorolac 30 MG/ML SDV IVPUSH SCH (18:30)
[2023-02-15 18:48] LABS: HEMATOCRIT 51.8 % (42.0-52.0); HEMOGLOBIN 17.6 gm/dl (14.0-18.0); MEAN CORPUSCULAR VOLUME 88.2 fl (83.0-99.0); MEAN PLATELET VOLUME 11.2 fl (9.4-12.4); PLATELET COUNT,PLT 192 K/mm3 (150-400); RED BLOOD CELL COUNT 5.87 M/mm3 (4.52-5.90); WHITE BLOOD CELL COUNT,WBC 8.26 K/mm3 (3.9-11.3)
[2023-02-15 19:00] LABS: A/G RATIO 1.1 (1-2); ALANINE AMINOTRANSFERASE,ALT 48 U/L (16-63); ALBUMIN 4.6 g/dl (3.4-5.0); ALKALINE PHOSPHATASE 119 U/L (46-116); ANION GAP 12.7 (5-15); ASPARTATE AMNIOTRANSFERASE,AST 29 U/L (15-37); BILIRUBIN TOTAL 0.5 mg/dL (0.2-1.0); BLOOD UREA NITROGEN,BUN 18 mg/dL (7-18); C-REACTIVE PROTEIN 1.6 mg/dL (<1.0); CALCIUM 9.8 mg/dL (8.5-10.1); CARBON DIOXIDE,CO2 27 mEq/L (21-32); CHLORIDE,CL 99 mEq/L (98-107); CREATININE 1.2 mg/dL (0.7-1.3); ESTIMATED GFR 78 mL/min (>60); GLUCOSE RANDOM 126 mg/dL (70-99); MAGNESIUM 2.1 mg/dL (1.8-2.4); POTASSIUM,K 3.7 mEq/L (3.5-5.1); PROTEIN TOTAL,TP 8.9 g/dl (6.4-8.2); SODIUM,NA 135 mEq/L (136-145)
[2023-02-15 19:01] LABS: TROPONIN I HIGH SENSITIVITY < 4 pg/mL (<=76)
[2023-02-15 19:47] LABS: BAND PERCENT MAN 0 % (0-10); BASOPHILS PERCENT MAN 0 (0.2-1.2); EOSINOPHILS PERCENT MAN 0 % (0.8-7.0); LYMPHOCYTES % ATYPICAL MANUAL 0 %; LYMPHOCYTES PERCENT MAN 29 % (20-40); MONOCYTES PERCENT MAN 3 % (2-10); PLATELET COUNT ESTIMATE ADEQUATE
[2023-02-15 20:25] VITALS: BP 140/105; PULSE 94
== END 2023-02-15 20:22 | disposition home or self-care (01) ==
LOC: JD.ED 17:38
DX: R07.89 Other chest pain (principal); M75.22 Bicipital tendinitis, left shoulder; F17.210 Nicotine dependence, cigarettes, uncomplicated; I10 Essential (primary) hypertension; Z86.16 Personal history of COVID-19; Z79.899 Other long term (current) drug therapy
CPT/HCPCS: 36415; 71045; 80053; 83735; 84484; 85007; 85027; 85379; 86140; 93005; 96374; 99285; A9270; J1885; 93010; 99284

== ENCOUNTER 2023-12-04 10:54 | Emergency (ER) | payer OTHER ==
[2023-12-04 11:45] LABS: BASOPHILS PERCENT AUTO 0.4 % (0.0-1.0); EOSINOPHILS ABSOLUTE AUTO 0.3 K/mm3 (0.0-0.4); EOSINOPHILS PERCENT AUTO 3.2 % (0.0-6.0); HEMATOCRIT 47.6 % (42.0-52.0); IMMATURE GRAN ABSOLUTE AUTO 0.02 K/mm3 (0.00-0.05); IMMATURE GRAN PERCENT AUTO 0.3 % (0.0-0.4); LYMPHOCYTES PERCENT AUTO 37.9 % (24.0-44.0); MEAN CORPUSCULAR HEMOGLOBIN 28.5 pg (28.0-32.0); MEAN CORPUSCULAR HGB CONC 33.6 g/dl (32.0-36.0); MEAN CORPUSCULAR VOLUME 84.8 fl (83.0-99.0); MEAN PLATELET VOLUME 11.3 fl (9.4-12.4); MONOCYTES ABSOLUTE AUTO 0.5 K/mm3 (0.0-0.8); MONOCYTES PERCENT AUTO 6.5 % (0.0-8.0); NEUTROPHILS ABSOLUTE AUTO 4.1 K/mm3 (1.8-7.7); NEUTROPHILS PERCENT AUTO 51.7 % (41.0-71.0); PLATELET COUNT,PLT 212 K/mm3 (150-400); RED BLOOD CELL COUNT 5.61 M/mm3 (4.52-5.90); WHITE BLOOD CELL COUNT,WBC 7.83 K/mm3 (3.9-11.3)
[2023-12-04 12:19] LABS: ALANINE AMINOTRANSFERASE,ALT 37 U/L (16-63); ALBUMIN 3.5 g/dl (3.4-5.0); ALKALINE PHOSPHATASE 93 U/L (46-116); ANION GAP 13.9 (5-15); ASPARTATE AMNIOTRANSFERASE,AST 18 U/L (15-37); BILIRUBIN TOTAL 0.3 mg/dL (0.2-1.0); BLOOD UREA NITROGEN,BUN 13 mg/dL (7-18); BUN/CREATININE RATIO 14.4 (14-18); CALCIUM 9.3 mg/dL (8.5-10.1); CARBON DIOXIDE,CO2 24 mEq/L (21-32); CHLORIDE,CL 104 mEq/L (98-107); CREATININE 0.9 mg/dL (0.7-1.3); ESTIMATED GFR 110 mL/min (>60); GLUCOSE RANDOM 105 mg/dL (70-99); POTASSIUM,K 3.9 mEq/L (3.5-5.1); SODIUM,NA 138 mEq/L (136-145)
[2023-12-04 12:21] LABS: TROPONIN I HIGH SENSITIVITY < 4 pg/mL (<=76)
[2023-12-04 12:43] LABS: T4 FREE 1.66 ng/dL (0.76-1.46); TSH < 0.007 uIU/mL (0.358-3.74)
[2023-12-04 19:19] VITALS: BP 121/82; PULSE 61
== END 2023-12-04 13:14 | disposition home or self-care (01) ==
LOC: JD.ED 10:54
DX: R55 Syncope and collapse (principal); E05.90 Thyrotoxicosis, unspecified without thyrotoxic crisis or storm; I10 Essential (primary) hypertension; Z86.16 Personal history of COVID-19; F17.210 Nicotine dependence, cigarettes, uncomplicated; Z79.899 Other long term (current) drug therapy; Z91.048 Other nonmedicinal substance allergy status; Z91.030 Bee allergy status
CPT/HCPCS: 36415; 70450; 70450-26; 71046; 71046-26; 80053; 83735; 84439; 84443; 84484; 85025; 85379; 93005; 93010; 93246; 99282; 99285

== ENCOUNTER 2023-12-05 13:18 | Emergency (ER) | payer OTHER ==
[2023-12-05 13:28] VITALS: PULSE 87
[2023-12-05] MEDS: Aspirin 81 MG Tab.Chew PO ONE (14:29)
[2023-12-05] MEDS: Famotidine 20 MG/2 ML SDV IVPUSH ONE (14:30)
[2023-12-05] MEDS: Alum Hydrox/Mag Hydrox/Simeth 30 ML, Lidocaine 2% 15 ML PO ONE (14:30)
[2023-12-05 14:37] LABS: BASOPHILS PERCENT AUTO 0.3 % (0.0-1.0); EOSINOPHILS ABSOLUTE AUTO 0.2 K/mm3 (0.0-0.4); EOSINOPHILS PERCENT AUTO 2.8 % (0.0-6.0); HEMATOCRIT 46.7 % (42.0-52.0); HEMOGLOBIN 15.6 gm/dl (14.0-18.0); IMMATURE GRAN ABSOLUTE AUTO 0.01 K/mm3 (0.00-0.05); IMMATURE GRAN PERCENT AUTO 0.1 % (0.0-0.4); LYMPHOCYTES PERCENT AUTO 28.8 % (24.0-44.0); MEAN CORPUSCULAR HEMOGLOBIN 27.9 pg (28.0-32.0); MEAN CORPUSCULAR HGB CONC 33.4 g/dl (32.0-36.0); MEAN CORPUSCULAR VOLUME 83.4 fl (83.0-99.0); MEAN PLATELET VOLUME 11.1 fl (9.4-12.4); MONOCYTES ABSOLUTE AUTO 0.4 K/mm3 (0.0-0.8); MONOCYTES PERCENT AUTO 6.3 % (0.0-8.0); NEUTROPHILS ABSOLUTE AUTO 4.3 K/mm3 (1.8-7.7); NEUTROPHILS PERCENT AUTO 61.7 % (41.0-71.0); PLATELET COUNT,PLT 194 K/mm3 (150-400); WHITE BLOOD CELL COUNT,WBC 7.04 K/mm3 (3.9-11.3)
[2023-12-05 15:11] LABS: A/G RATIO 1.1 (1-2); ALANINE AMINOTRANSFERASE,ALT 38 U/L (16-63); ALBUMIN 3.6 g/dl (3.4-5.0); ALKALINE PHOSPHATASE 87 U/L (46-116); ANION GAP 13.1 (5-15); ASPARTATE AMNIOTRANSFERASE,AST 17 U/L (15-37); BILIRUBIN TOTAL 0.3 mg/dL (0.2-1.0); BLOOD UREA NITROGEN,BUN 12 mg/dL (7-18); BUN/CREATININE RATIO 13.3 (14-18); CALCIUM 9.6 mg/dL (8.5-10.1); CARBON DIOXIDE,CO2 24 mEq/L (21-32); CHLORIDE,CL 105 mEq/L (98-107); CREATININE 0.9 mg/dL (0.7-1.3); ESTIMATED GFR 110 mL/min (>60); GLUCOSE RANDOM 109 mg/dL (70-99); LIPASE 91 U/L (16-77); POTASSIUM,K 4.1 mEq/L (3.5-5.1); PROTEIN TOTAL,TP 6.8 g/dl (6.4-8.2); SODIUM,NA 138 mEq/L (136-145)
[2023-12-05 15:15] LABS: TROPONIN I HIGH SENSITIVITY < 4 pg/mL (<=76)
[2023-12-05 19:16] VITALS: BP 130/89
== END 2023-12-05 18:15 | disposition home or self-care (01) ==
LOC: JD.ED 13:18
DX: R07.9 Chest pain, unspecified (principal); I10 Essential (primary) hypertension; F17.200 Nicotine dependence, unspecified, uncomplicated; Z91.048 Other nonmedicinal substance allergy status; Z79.899 Other long term (current) drug therapy; Z86.16 Personal history of COVID-19
CPT/HCPCS: 36415; 71046; 80053; 83690; 83735; 84484; 85025; 85379; 93005; 96374; 99285; A9270; J3490; 93010; 99284

== ENCOUNTER 2024-04-04 03:14 | Emergency (ER) | payer OTHER ==
[2024-04-04 03:40] LABS: BASOPHILS PERCENT AUTO 0.4 % (0.0-1.0); EOSINOPHILS ABSOLUTE AUTO 0.2 K/mm3 (0.0-0.4); EOSINOPHILS PERCENT AUTO 1.8 % (0.0-6.0); HEMATOCRIT 51.4 % (42.0-52.0); HEMOGLOBIN 17.3 gm/dl (14.0-18.0); IMMATURE GRAN ABSOLUTE AUTO 0.03 K/mm3 (0.00-0.05); IMMATURE GRAN PERCENT AUTO 0.3 % (0.0-0.4); LYMPHOCYTES ABSOLUTE AUTO 2.7 K/mm3 (1.0-4.8); LYMPHOCYTES PERCENT AUTO 26.3 % (24.0-44.0); MEAN CORPUSCULAR HEMOGLOBIN 28.2 pg (28.0-32.0); MEAN CORPUSCULAR HGB CONC 33.7 g/dl (32.0-36.0); MEAN CORPUSCULAR VOLUME 83.7 fl (83.0-99.0); MEAN PLATELET VOLUME 11.5 fl (9.4-12.4); MONOCYTES ABSOLUTE AUTO 0.7 K/mm3 (0.0-0.8); MONOCYTES PERCENT AUTO 7.1 % (0.0-8.0); NEUTROPHILS ABSOLUTE AUTO 6.6 K/mm3 (1.8-7.7); NEUTROPHILS PERCENT AUTO 64.1 % (41.0-71.0); PLATELET COUNT,PLT 200 K/mm3 (150-400); RED BLOOD CELL COUNT 6.14 M/mm3 (4.52-5.90); WHITE BLOOD CELL COUNT,WBC 10.21 K/mm3 (3.9-11.3)
[2024-04-04] MEDS: Sodium Chloride 0.9% 1,000 ML IV ONE (03:45)
[2024-04-04] MEDS: Sodium Chloride 0.9% 10 ML Syringe FLUSH PRN (03:46)
[2024-04-04 04:01] LABS: ALBUMIN 3.8 g/dl (3.4-5.0); ALKALINE PHOSPHATASE 116 U/L (46-116); ANION GAP 15.8 (5-15); BILIRUBIN TOTAL 0.6 mg/dL (0.2-1.0); BLOOD UREA NITROGEN,BUN 13 mg/dL (7-18); BUN/CREATININE RATIO 10.8 (14-18); CALCIUM 8.5 mg/dL (8.5-10.1); CARBON DIOXIDE,CO2 23 mEq/L (21-32); CHLORIDE,CL 105 mEq/L (98-107); CREATININE 1.2 mg/dL (0.7-1.3); EST CRCL DRUG DOSING (CG) 78.38 mL/min; ESTIMATED GFR 78 mL/min (>60); LIPASE 92 U/L (16-77); PROTEIN TOTAL,TP 7.7 g/dl (6.4-8.2); SODIUM,NA 140 mEq/L (136-145); TROPONIN I HIGH SENSITIVITY 5 pg/mL (<=76)
[2024-04-04] MEDS: Iopamidol 755 Mg/ML 100 ML Bottle IVPUSH ONE (04:03)
[2024-04-04 04:14] LABS: TSH < 0.007 uIU/mL (0.358-3.74)
[2024-04-04 04:15] LABS: GLUCOSE RANDOM 140 mg/dL (70-99); POTASSIUM,K 3.8 mEq/L (3.5-5.1)
[2024-04-04 04:33] LABS: T4 FREE 1.56 ng/dL (0.76-1.46)
[2024-04-04 06:31] VITALS: BP 159/111; PULSE 97
== END 2024-04-04 06:27 | disposition home or self-care (01) ==
LOC: JD.ED 03:14
DX: R07.9 Chest pain, unspecified (principal); R00.2 Palpitations; R94.6 Abnormal results of thyroid function studies; R74.8 Abnormal levels of other serum enzymes; I10 Essential (primary) hypertension; F17.210 Nicotine dependence, cigarettes, uncomplicated; Z86.16 Personal history of COVID-19; Z91.030 Bee allergy status; Z91.048 Other nonmedicinal substance allergy status; Z79.899 Other long term (current) drug therapy
CPT/HCPCS: 36415; 71275; 71275-26; 80053; 83690; 83735; 84439; 84443; 84484; 85025; 93005; 96360; 99285-25; J3490; J7030; Q9967

== ENCOUNTER 2025-01-07 22:33 | Emergency (ER) | payer OTHER ==
[2025-01-07] MEDS ORDERED: Sodium Chloride 0.9% 10 ML Syringe FLUSH PRN (23:01)
[2025-01-07 23:09] LABS: BASOPHILS ABSOLUTE AUTO 0.0 K/mm3 (0.0-0.2); BASOPHILS PERCENT AUTO 0.5 % (0.0-1.0); EOSINOPHILS ABSOLUTE AUTO 0.3 K/mm3 (0.0-0.4); EOSINOPHILS PERCENT AUTO 3.4 % (0.0-6.0); IMMATURE GRAN ABSOLUTE AUTO 0.04 K/mm3 (0.00-0.05); IMMATURE GRAN PERCENT AUTO 0.5 % (0.0-0.4); LYMPHOCYTES ABSOLUTE AUTO 2.9 K/mm3 (1.0-4.8); LYMPHOCYTES PERCENT AUTO 33.6 % (24.0-44.0); MEAN PLATELET VOLUME 11.3 fl (9.4-12.4); MONOCYTES ABSOLUTE AUTO 0.6 K/mm3 (0.0-0.8); MONOCYTES PERCENT AUTO 7.4 % (0.0-8.0); NEUTROPHILS ABSOLUTE AUTO 4.7 K/mm3 (1.8-7.7); NEUTROPHILS PERCENT AUTO 54.6 % (41.0-71.0); NRBC ABSOLUTE 0.00 (0.00-0.02); NRBC PERCENT 0.0 % (0.0-0.2); PLATELET COUNT,PLT 194 K/mm3 (150-400); RED BLOOD CELL COUNT 5.88 M/mm3 (4.52-5.90); WHITE BLOOD CELL COUNT,WBC 8.52 K/mm3 (3.9-11.3)
[2025-01-07 23:22] LABS: A/G RATIO 1.1 (1-2); ALANINE AMINOTRANSFERASE,ALT 33 U/L (16-63); ASPARTATE AMNIOTRANSFERASE,AST 17 U/L (15-37); BILIRUBIN TOTAL 0.3 mg/dL (0.2-1.0); BLOOD UREA NITROGEN,BUN 10 mg/dL (7-18); CARBON DIOXIDE,CO2 25 mEq/L (21-32); CHLORIDE,CL 107 mEq/L (98-107); CREATININE 1.0 mg/dL (0.7-1.3); EST CRCL DRUG DOSING (CG) 93.10 mL/min; ESTIMATED GFR 96 mL/min (>60); GLUCOSE RANDOM 88 mg/dL (70-99); POTASSIUM,K 3.9 mEq/L (3.5-5.1); PROTEIN TOTAL,TP 7.2 g/dl (6.4-8.2); SODIUM,NA 142 mEq/L (136-145)
[2025-01-07 23:27] LABS: TROPONIN I HIGH SENSITIVITY < 4 pg/mL (<=76)
[2025-01-08 00:35] VITALS: BP 147/76; PULSE 55
== END 2025-01-08 00:34 | disposition home or self-care (01) ==
LOC: JD.ED 22:33
DX: I10 Essential (primary) hypertension (principal); F17.210 Nicotine dependence, cigarettes, uncomplicated; Z86.16 Personal history of COVID-19; E05.90 Thyrotoxicosis, unspecified without thyrotoxic crisis or storm; Z79.899 Other long term (current) drug therapy; Z91.09 Other allergy status, other than to drugs and biological substances; Z91.030 Bee allergy status
CPT/HCPCS: 36415; 80053; 83735; 84484; 85025; 93005; 96365; 99284; A9270; J3490; 93010; 99283

== ENCOUNTER 2025-02-03 23:20 | Emergency (ER) | payer OTHER ==
[2025-02-03] MEDS ORDERED: Sodium Chloride 0.9% 10 ML Syringe FLUSH PRN (23:30)
[2025-02-03 23:46] LABS: BASOPHILS ABSOLUTE AUTO 0.0 K/mm3 (0.0-0.2); BASOPHILS PERCENT AUTO 0.3 % (0.0-1.0); EOSINOPHILS ABSOLUTE AUTO 0.3 K/mm3 (0.0-0.4); EOSINOPHILS PERCENT AUTO 3.3 % (0.0-6.0); IMMATURE GRAN ABSOLUTE AUTO 0.02 K/mm3 (0.00-0.05); IMMATURE GRAN PERCENT AUTO 0.2 % (0.0-0.4); LYMPHOCYTES ABSOLUTE AUTO 2.7 K/mm3 (1.0-4.8); LYMPHOCYTES PERCENT AUTO 29.4 % (24.0-44.0); MEAN PLATELET VOLUME 11.3 fl (9.4-12.4); MONOCYTES ABSOLUTE AUTO 0.5 K/mm3 (0.0-0.8); MONOCYTES PERCENT AUTO 5.8 % (0.0-8.0); NEUTROPHILS ABSOLUTE AUTO 5.5 K/mm3 (1.8-7.7); NEUTROPHILS PERCENT AUTO 61.0 % (41.0-71.0); NRBC ABSOLUTE 0.00 (0.00-0.02); NRBC PERCENT 0.0 % (0.0-0.2); PLATELET COUNT,PLT 181 K/mm3 (150-400); RED BLOOD CELL COUNT 5.87 M/mm3 (4.52-5.90); WHITE BLOOD CELL COUNT,WBC 9.02 K/mm3 (3.9-11.3)
[2025-02-04 00:11] LABS: A/G RATIO 1.0 (1-2); BILIRUBIN TOTAL 0.6 mg/dL (0.2-1.0); BLOOD UREA NITROGEN,BUN 11.0 mg/dL (7-18); CARBON DIOXIDE,CO2 26.0 mEq/L (21-32); CHLORIDE,CL 106.0 mEq/L (98-107); CREATININE 1.1 mg/dL (0.7-1.3); EST CRCL DRUG DOSING (CG) 81.79 mL/min; ESTIMATED GFR 86.0 mL/min (>60); PROTEIN TOTAL,TP 7.5 g/dl (6.4-8.2); SODIUM,NA 139.0 mEq/L (136-145)
[2025-02-04] MEDS: Ketorolac 30 MG/ML SDV IVPUSH ONE (00:16)
[2025-02-04 00:28] LABS: APPEARANCE,URINE CLEAR (Clear); GLUCOSE,URINE NEGATIVE (Negative); OCCULT BLOOD,URINE NEGATIVE (Negative)
[2025-02-04 00:28] LABS: GLUCOSE RANDOM 127.0 mg/dL (70-99); POTASSIUM,K 4.3 mEq/L (3.5-5.1)
[2025-02-04 00:30] LABS: ALANINE AMINOTRANSFERASE,ALT 34.0 U/L (16-63); ASPARTATE AMNIOTRANSFERASE,AST 21.0 U/L (15-37)
[2025-02-04 01:05] VITALS: BP 126/91; PULSE 88
== END 2025-02-04 01:03 | disposition home or self-care (01) ==
LOC: JD.ED 23:20
DX: N23 Unspecified renal colic (principal); I10 Essential (primary) hypertension; Z91.030 Bee allergy status; Z91.048 Other nonmedicinal substance allergy status; Z79.899 Other long term (current) drug therapy
CPT/HCPCS: 36415; 74176; 80053; 81003; 85025; 96374; 99284; J1885; 99283

== ENCOUNTER 2025-03-31 17:34 | Emergency (ER) | payer OTHER ==
[2025-03-31 17:51] VITALS: PULSE 59
[2025-03-31] MEDS ORDERED: Sodium Chloride 0.9% 10 ML Syringe FLUSH PRN (18:05)
[2025-03-31 18:19] LABS: BASOPHILS ABSOLUTE AUTO 0.1 K/mm3 (0.0-0.2); BASOPHILS PERCENT AUTO 0.6 % (0.0-1.0); EOSINOPHILS ABSOLUTE AUTO 0.2 K/mm3 (0.0-0.4); EOSINOPHILS PERCENT AUTO 2.7 % (0.0-6.0); IMMATURE GRAN ABSOLUTE AUTO 0.02 K/mm3 (0.00-0.05); IMMATURE GRAN PERCENT AUTO 0.2 % (0.0-0.4); LYMPHOCYTES ABSOLUTE AUTO 2.6 K/mm3 (1.0-4.8); LYMPHOCYTES PERCENT AUTO 31.1 % (24.0-44.0); MEAN PLATELET VOLUME 11.2 fl (9.4-12.4); MONOCYTES ABSOLUTE AUTO 0.6 K/mm3 (0.0-0.8); MONOCYTES PERCENT AUTO 6.6 % (0.0-8.0); NEUTROPHILS ABSOLUTE AUTO 4.9 K/mm3 (1.8-7.7); NEUTROPHILS PERCENT AUTO 58.8 % (41.0-71.0); NRBC ABSOLUTE 0.00 (0.00-0.02); NRBC PERCENT 0.0 % (0.0-0.2); PLATELET COUNT,PLT 224 K/mm3 (150-400); RED BLOOD CELL COUNT 6.02 M/mm3 (4.52-5.90); WHITE BLOOD CELL COUNT,WBC 8.38 K/mm3 (3.9-11.3)
[2025-03-31] MEDS: Ketorolac 30 MG/ML SDV IVPUSH ONE (18:25)
[2025-03-31] MEDS: diphenhydrAMINE 50 MG/ML SDV IVPUSH ONE (18:25)
[2025-03-31 18:32] LABS: A/G RATIO 1.0 (1-2); ALANINE AMINOTRANSFERASE,ALT 28.0 U/L (16-63); ASPARTATE AMNIOTRANSFERASE,AST 17.0 U/L (15-37); BILIRUBIN TOTAL 0.7 mg/dL (0.2-1.0); BLOOD UREA NITROGEN,BUN 10.0 mg/dL (7-18); CARBON DIOXIDE,CO2 29.0 mEq/L (21-32); CHLORIDE,CL 105.0 mEq/L (98-107); CREATININE 1.0 mg/dL (0.7-1.3); EST CRCL DRUG DOSING (CG) 89.97 mL/min; ESTIMATED GFR 96.0 mL/min (>60); GLUCOSE RANDOM 92.0 mg/dL (70-99); POTASSIUM,K 4.3 mEq/L (3.5-5.1); PROTEIN TOTAL,TP 8.1 g/dl (6.4-8.2); SODIUM,NA 141.0 mEq/L (136-145)
[2025-03-31 22:27] VITALS: BP 116/75
== END 2025-03-31 19:32 | disposition home or self-care (01) ==
LOC: JD.ED 17:34
DX: R51.9 Headache, unspecified (principal); I10 Essential (primary) hypertension; Z79.899 Other long term (current) drug therapy; Z91.048 Other nonmedicinal substance allergy status; Z91.030 Bee allergy status
CPT/HCPCS: 36415; 70450; 80053; 85025; 96374; 96375; 99284; J1200; J1885; J2765